=== PATIENT | male | born 1940 | race Caucasian/White ===

== ENCOUNTER 2016-10-28 19:14 | Inpatient (IN) ==
[2016-10-28] MEDS ORDERED: Pantoprazole 80 MG in 0.9 % Sodium Chloride 50 ML IVPB ONE (19:22)
[2016-10-28] MEDS ORDERED: 0.9 % Sodium Chloride 500 ML IVC ONE (19:23)
[2016-10-28 20:06] LABS: Basophils # 0.1 K/mcL (0.0-0.2); Basophils % 0.5 %; Eosinophils # 0.1 K/mcL (0.0-0.6); Eosinophils % 0.8 %; Hematocrit 37.4 % (37.5-50.1); Hemoglobin 12.3 g/dL (12.9-16.9); Immature Granulocytes % 2.1 % (0-4); Lymphocytes # 2.1 K/mcL (0.6-4.6); Lymphocytes % 13.9 %; Mean Corpuscular HGB Conc 32.9 g/dL (31.6-35.5); Mean Corpuscular Hemoglobin 29.4 pg (28.0-33.3); Mean Corpuscular Volume 89.3 fL (83.0-100.0); Mean Platelet Volume 9.8 fL (9.4-12.4); Monocytes # 0.4 K/mcL (0.0-1.3); Monocytes % 2.7 %; Neutrophils # 12.2 K/mcL (1.6-8.9); Platelet Count 247 K/mcL (140-400); Red Blood Count 4.19 M/mcL (4.19-5.50); Red Cell Distribution Width 14.8 % (11.5-14.5)
[2016-10-28 20:11] LABS: INR 1.1; Prothrombin Time 11.8 Seconds (9.4-12.1)
--- NOTE | 2016-10-28 20:11 | Emergency Department Note ---
Disposition Clinical Impression: GI bleed Qualifiers: GI bleed type/associated pathology: unspecified gastrointestinal hemorrhage type Qualified Code(s): K92.2 - Gastrointestinal hemorrhage, unspecified Disposition: Admitted As Inpatient Condition: Good GI Bleed HPI - General Chief complaint: ED GI Bleed Stated complaint: possible GI bleeding Time Seen by Provider: 10/28/16 19:21 Source: patient, family Mode of arrival: ambulatory Limitations: no limitations Nursing Notes Reviewed: Yes Vital Signs Reviewed: Yes - History of Present Illness HPI Narrative: Patient transferred from the [place] urgent care for evaluation of GI bleed. 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 at bedside able to confirm history with [place] urgent care. Patient has had increasing bloody as well as black bowel movements. Patient was seen by urgent care and found to have a dropping hemoglobin. Patient's hemoglobin on October 19 was 15.7. October 27 13.8. October 28 11.9. Patient denies any active chest pain back pain or abdominal pain. Stool guaiac study performed showing melanotic stool with intermixed bright red blood. Patient currently hemodynamically stable. Blood work as well as type and cross performed. Patient given Protonix bolus. 500 mL of normal saline bolus. states that it has been greater than 5 years at least since his previous colonoscopy. We will repeat labs to be able to trend his hemoglobin as well as coags and EKG for possible preprocedure clearance. - Related Data Home Medications Medication Instructions Recorded Confirmed Allopurinol [Zyloprim 100 MG] 100 mg PO DAILY 10/28/16 10/28/16 Atenolol [Tenormin] 50 mg PO DAILY 10/28/16 10/28/16 Cholecalciferol (D-3) [Vitamin D] 1,000 unit PO DAILY 10/28/16 10/28/16 Donepezil HCl [Aricept] 10 mg PO DAILY 10/28/16 10/28/16 Galantamine HBr [Razadyne] 4 mg PO DAILY 10/28/16 10/28/16 Memantine [Namenda] 10 mg PO DAILY 10/28/16 10/28/16 Potassium Gluconate 500 mg PO DAILY 10/28/16 10/28/16 Sulfamethoxazole/Trimeth DS 1 tab PO BID 10/28/16 10/28/16 [Bactrim DS] amLODIPine [Norvasc] 5 mg PO DAILY 10/28/16 10/28/16 Allergies Allergy/AdvReac Type Severity Reaction Status Date / Time No Known Allergies Allergy Verified 02/02/15 14:04 Review of Systems: CONSTITUTIONAL: No weight loss, fever, chills, weakness or fatigue. HEENT: Eyes: No visual changes. Ears, Nose, Throat: No hearing loss, difficulty talking or unable to swallow. SKIN: No rash or itching. CARDIOVASCULAR: No chest pain, chest pressure or chest discomfort. No palpitations or edema. RESPIRATORY: No shortness of breath, cough or sputum. GASTROINTESTINAL: Rectal bleeding GENITOURINARY: No burning on urination or hematuria. NEUROLOGICAL: No headache, dizziness, syncope, paralysis, ataxia, numbness or tingling in the extremities. No change in bowel or bladder control. MUSCULOSKELETAL: No muscle pain, back pain, joint pain or stiffness. Past Medical History - Past Medical History Medical history: Reports: hypertension Surgical history: Reports: no surgical history Psychiatric history: Reports: no psych history - Social History Smoking Status: Former smoker Smokeless Tobacco Status: No Alcohol use: Reports: none Drug use: Reports: none Physical Exam General appearance: NAD, conversant Eyes: anicteric sclerae, moist conjunctivae; PERRL HENT: Atraumatic; oropharynx clear with moist mucous membranes and no mucosal ulcerations Neck: Normal inspection; Trachea midline; FROM, supple Lungs: CTA, with normal respiratory effort and no intercostal retractions CV: RRR, no MRGs Abdomen: Soft, non-tender; no rebound or gaurding Stool guaiac positive for melanotic and intermixed bright red blood Extremities: No peripheral edema or extremity lymphadenopathy Skin: Normal temperature; no rash, ulcers or lesions Psych: Appropriate mood and affect Neuro: alert and oriented to person but not place or time. Course - Reevaluation(s) Reevaluation #1: Patient remains stable. Time: 20:36 - Consultations Consultation #1: Discussed with Dr. Carson, hospitalist. Patient accepted for admission. Time: 20:36 Vital Signs Temperature 98.3 F 10/28/16 19:25 Pulse Rate 72 10/28/16 19:25 Respiratory Rate 18 10/28/16 19:25 Blood Pressure 137/78 10/28/16 19:25 O2 Sat by Pulse Oximetry 98 10/28/16 19:25 Temperature 0 F L 10/28/16 20:50 Pulse Rate 72 10/28/16 20:50 Respiratory Rate 18 10/28/16 20:50 Blood Pressure 145/82 10/28/16 20:50 O2 Sat by Pulse Oximetry 99 10/28/16 20:50 Oxygen Delivery Oxygen Delivery Room Air GI Bleed - Medical Records Medical records reviewed: Yes I reviewed the patient's medical records. - Lab Data Lab results reviewed: Yes I reviewed the patient's lab results. Result diagrams: 10/28/16 19:35 10/28/16 19:35 Lab Results 10/28/16 10/28/16 10/28/16 Range/Units 19:35 19:35 19:35 WBC 15.3 H (4.3-11.1) K/mcL RBC 4.19 (4.19-5.50) M/mcL Hgb 12.3 L (12.9-16.9) g/dL Hct 37.4 L (37.5-50.1) % MCV 89.3 (83.0-100.0) fL MCH 29.4 (28.0-33.3) pg MCHC 32.9 (31.6-35.5) g/dL RDW 14.8 H (11.5-14.5) % Plt Count 247 (140-400) K/mcL MPV 9.8 (9.4-12.4) fL Immature Gran % 2.1 (0-4) % Seg Neutrophils % 80.0 % Lymphocytes % 13.9 % Monocytes % 2.7 % Eosinophils % 0.8 % Basophils % 0.5 % Neutrophils # 12.2 H (1.6-8.9) K/mcL Lymphocytes # 2.1 (0.6-4.6) K/mcL Monocytes # 0.4 (0.0-1.3) K/mcL Eosinophils # 0.1 (0.0-0.6) K/mcL Basophils # 0.1 (0.0-0.2) K/mcL PT 11.8 (9.4-12.1) Seconds INR 1.1 APTT 28.4 (26.0-36.0) Seconds Sodium 138 (136-145) mEq/L Potassium 4.6 H (3.5-4.5) mEq/L Chloride 109 (98-109) mEq/L Carbon Dioxide 21 (19-29) mEq/L BUN 49 H (8-26) mg/dL Creatinine 1.54 H (0.72-1.25) mg/dL Est GFR ( Amer) 53 L (> 60) Est GFR (Non-Af Amer) 44 L (> 60) BUN/Creatinine Ratio 32 H (6-26) Glucose 99 (70-99) mg/dL Calculated Osmolality 299 (280-300) Calcium 8.9 (8.6-10.8) mg/dL Blood Type Antibody Screen 10/28/16 Range/Units 19:35 WBC (4.3-11.1) K/mcL RBC (4.19-5.50) M/mcL Hgb (12.9-16.9) g/dL Hct (37.5-50.1) % MCV (83.0-100.0) fL MCH (28.0-33.3) pg MCHC (31.6-35.5) g/dL RDW (11.5-14.5) % Plt Count (140-400) K/mcL MPV (9.4-12.4) fL Immature Gran % (0-4) % Seg Neutrophils % % Lymphocytes % % Monocytes % % Eosinophils % % Basophils % % Neutrophils # (1.6-8.9) K/mcL Lymphocytes # (0.6-4.6) K/mcL Monocytes # (0.0-1.3) K/mcL Eosinophils # (0.0-0.6) K/mcL Basophils # (0.0-0.2) K/mcL PT (9.4-12.1) Seconds INR APTT (26.0-36.0) Seconds Sodium (136-145) mEq/L Potassium (3.5-4.5) mEq/L Chloride (98-109) mEq/L Carbon Dioxide (19-29) mEq/L BUN (8-26) mg/dL Creatinine (0.72-1.25) mg/dL Est GFR ( Amer) (> 60) Est GFR (Non-Af Amer) (> 60) BUN/Creatinine Ratio (6-26) Glucose (70-99) mg/dL Calculated Osmolality (280-300) Calcium (8.6-10.8) mg/dL Blood Type O POSITIVE Antibody Screen NEGATIVE - EKG Data EKG attestation: Yes I reviewed and interpreted this EKG. EKG results narrative: EKG shows sinus rhythm with ventricular rate of 65 bpm. ME interval 192. QRS 101. QTC 398. Patient has no significant ST elevations or depressions. EKG similar in appearance to 02/03/2009. Attestation Statement - Attestation Attestation: I, José Encarnacion MD, personally evaluated this patient and discussed their management with the resident physician. I reviewed the resident's note and agree with the documented findings, medical decision making, and plan of care. 76-year-old male transferred here from the [place] for evaluation of GI bleeding. Family reports that this morning he had a black bloody bowel movement. He denies abdominal pain. He was recently seen at the [place] and started on antibiotics for UTI. He had lab work yesterday and his hemoglobin had dropped 2 g from previous. On examination patient is a well-developed well-nourished elderly male in no acute distress. He is alert and cooperative and answers questions appropriately. There is no cyanosis or diaphoresis. Breath sounds are clear and equal bilaterally. Heart regular rate and rhythm. Abdomen is soft and nontender with normal bowel sounds. Labs reviewed. The hospitalist, Dr. Carson, was consulted and accepted admission of the patient.
[2016-10-28 20:14] LABS: Activated Partial Thrombo Time 28.4 Seconds (26.0-36.0)
[2016-10-28 20:18] LABS: Calcium 8.9 mg/dL (8.6-10.8); Potassium 4.6 mEq/L (3.5-4.5)
[2016-10-28] MEDS ORDERED: Ondansetron 4 MG/2 ML VIAL IVP PRN ×2 (20:34→22:17)
[2016-10-28] MEDS ORDERED: Naloxone 0.4 MG/ML INJ IVP PRN (20:34)
[2016-10-28] MEDS ORDERED: Acetaminophen 325 MG TABLET PO PRN (22:17)
--- NOTE | 2016-10-28 22:50 | Internal Med History&Physical ---
<Nishant Carson - Last Filed: 10/28/16 23:28> Date of Encounter: 10/28/16 Internal Medicine - H&P: HPI History of present illness: is a 76 year old male Internal Medicine - H&P: Meds Allopurinol [Zyloprim 100 MG] 100 mg PO DAILY 10/28/16 [History] Atenolol [Tenormin] 50 mg PO DAILY 10/28/16 [History] Cholecalciferol (D-3) [Vitamin D] 1,000 unit PO DAILY 10/28/16 [History] Donepezil HCl [Aricept] 10 mg PO DAILY 10/28/16 [History] Galantamine HBr [Razadyne] 4 mg PO DAILY 10/28/16 [History] Memantine [Namenda] 10 mg PO DAILY 10/28/16 [History] Potassium Gluconate 500 mg PO DAILY 10/28/16 [History] Sulfamethoxazole/Trimeth DS [Bactrim DS] 1 tab PO BID 10/28/16 [History] amLODIPine [Norvasc] 5 mg PO DAILY 10/28/16 [History] Allergies No Known Allergies Allergy (Verified 02/02/15 14:04) All Systems PM: A 10-system review of systems was performed and is negative for pertinent findings except as documented above in the HPI. - Constitutional Vitals: Temp Pulse Resp BP Pulse Ox 98.3 F 68 16 117/69 94 10/28/16 21:46 10/28/16 21:46 10/28/16 21:46 10/28/16 21:46 10/28/16 21:46 Internal Med - H&P Results - Labs CBC & Chem 7: 10/28/16 22:35 10/28/16 19:35 Labs: Short CBC 10/28/16 Range/Units 22:35 Hgb 10.4 L D (12.9-16.9) g/dL Hct 31.1 L (37.5-50.1) % - Attending Attestation I examined this patient and my medical decision-making was reviewed with Ms. Dean. I agree with the documented findings, disposition and treatment plan as described except to the extent set forth below. 76 has been sent from [place] due to black-colored stools over the past few days with blood noted today. Patient does have dementia and hence history was obtained from his . According to the , she noticed blood in the patient 's stools today. Currently, the patient reports feeling tired. His stated that the patient was short of breath over the past couple of days. He denies any chest pain, abdominal pain. History of nonsteroidal anti- inflammatory drug use. On exam, patient lying in bed and appears to be no acute distress. Clear breath sounds bilaterally. Abdomen soft, nontender and nondistended. Labs reviewed. EKG personally reviewed-sinus rhythm. No ST-T wave changes. Assessment/plan: 1. Acute blood loss anemia due to gastrointestinal bleed-patient to be admitted to inpatient status. High risk due to risk of further blood loss and risk of hemorrhagic shock. Expected to be in the hospital for at least 2 midnights. Expected discharge disposition is to home. Nothing by mouth. Case discussed with Dr. Brown who is gauge controller for endoscopy this weekend by Ms. Dean. Patient will be evaluated by him in the morning. PPI drip. Intravenous fluids. Trend hemoglobin and hematocrit. Type and crossmatch. No indication for transfusion currently. 2. GI blood loss-likely upper GI bleed related to possible gastritis versus duodenitis versus peptic ulcer disease. Related to nonsteroidal anti- inflammatory drug use. 3. Hypertension BUBBA Hogan <Sunni Dean - Last Filed: 10/29/16 00:22> Date of Encounter: 10/29/16 Time of Encounter: 22:47 Assessment and Plan (1) GI bleed Current visit: Yes Status: Acute Patient with reports of bloody as well as black stools. Fecal occult blood was positive. Hgb dropped from 15.7 on 10/19 to 11.9 today. Patient is not on any blood thinners, but has been taking naproxen. Hold NSAIDs. 80mg protonix given in ED. Protonix drip Check H/H Q6 hours NPO Consult to Dr. Brown, gauge controller for GI bleed, he will see patient tomorrow. Qualifiers: GI bleed type/associated pathology: unspecified gastrointestinal hemorrhage type Qualified Code(s): K92.2 - Gastrointestinal hemorrhage, unspecified (2) CKD (chronic kidney disease) Current visit: Yes Status: Acute Creatinine of 1.54 today, down from creatinine on 10/19 of 1.64. Family is unaware of any diagnosis of CKD, and we do not have previous lab values. It is unclear if this is chronic or more acute in nature. REcent diagnosis of UTI. Holding NSAIDs and other nephrotoxins. Hydrating with fluids, 0.9NS at 100mL/ hr. Check chemistry daily. Qualifiers: Chronic kidney disease stage: stage 3 (moderate) Qualified Code(s): N18.3 - Chronic kidney disease, stage 3 (moderate) (3) UTI (urinary tract infection) Current visit: Yes Status: Acute Patient diagnosed with UTI at [facility] yesterday and started on Bactrim BID. UA from today does not appear infected, but will continue Bactrim BID. Qualifiers: Urinary tract infection type: acute cystitis Hematuria presence: without hematuria Qualified Code(s): N30.00 - Acute cystitis without hematuria (4) Dementia Current visit: Yes Status: Acute Patient with dementia, poor historian, but oriented on assessment. Continue home doses of Aricept, Namenda and Razadyne. 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 Recommend follow-up with ultrasound in 6 months. (6) DVT prophylaxis Current visit: Yes Status: Acute Sequential compression devices. Pharmacologic prophylaxis is contraindicated in patient with suspected GI bleed. Internal Medicine - H&P: HPI Chief complaint: bloody stool Admitted From: Emergency Dept Plans for Post Hospital Care: Home History of present illness: is a 76 year old male with hypertension, hyperlipidemia, gout, Alzheimer's dementia, was sent from the [facility] urgent care with reports of black and bloody stools. Patient reports that this morning his stool was bloody, reports she is unsure how long this has been going on, stool was also seen to be black. Patient reports dyspnea on exertion, nausea. Patient denies any lightheadedness, chest pain, palpitations, vomiting, abdominal pain. Evaluation at the [facility] revealed positive fecal occult blood, and drop in hemoglobin from 15.7 on October 19 to 11.9 today. Patient is not on any anticoagulation. Other evaluation revealed elevated creatinine of 1.54, down from previous value of 1.64 on October 19. Patient is unaware of any diagnosis of chronic kidney disease. White blood cell count was elevated at 15.3, patient had been diagnosed with UTI yesterday and started on Bactrim twice a day. CT of the abdomen and pelvis done at the [facility] showed no evidence of urinary lithiasis colonic diverticulosis but no evidence of diverticulitis. On exam, patient alert and oriented, in no acute distress. Heart had regular rate and rhythm, lungs clear to auscultation bilaterally. Abdomen soft, nontender, positive bowel sounds. No peripheral edema. Past Med Surg Social Fam HX - Past Medical History Medical history: dementia, hyperlipidemia, hypertension, thyroid disease, other Psychiatric history: no psych history - Past Surgical History Surgical History: herniorrhaphy, orthopedic, other (bilateral rotator cuff) - Social History Smoking Status: Former smoker Smokeless Tobacco Status: No Alcohol use: none Drug use: none - Family History Father Adopted: [place]: JOHANNE Family Member Ethnicity: Non- Living Status: Age at : 52 Cause of : LUNG CANCER Hx Family Cardiac Disorders: Yes Hx Family Respiratory Disorders: Yes Hx Family Cancer: Yes Hx Family GI Disorders: No Hx Family Genitourinary Disorders: No Hx Family Endocrine Disorder: No Hx Family Musculoskeletal Disorders: No Hx Family Neuromuscular Disorders: No Hx Family Neurologic Disorders: No Hx Family HEENT Disorders: No Hx Family Autoimmune Disorders: No Hx Family Reproductive Disorders: No Hx Family Psychosocial Disorders: No Hx Family Medical Disorders: No Mother Living Status: Age at : 79 Hx Family Cardiac Disorders: Yes All Systems PM: A 10-system review of systems was performed and is negative for pertinent findings except as documented above in the HPI. - Constitutional Constitutional: no chills, no fever(s), no night sweats - EENT Eyes: no change in vision, no discharge, no pain, no photophobia Ears: no ear discharge, no ear pain, no tinnitus Nose, mouth and throat: no dysphagia, no nasal discharge, no neck pain, no sore throat - Cardiovascular Cardiovascular ROS IM: dyspnea on exertion, no chest pain, no diaphoresis, no dyspnea, no lightheadedness, no palpitations, no syncope - Respiratory Respiratory: dyspnea on exertion, no cough, no dyspnea, no wheezing, no excessive phlegm production - Gastrointestinal Gastrointestinal: hematochezia, melena, nausea, no abdominal pain, no diarrhea, no hematemesis, no vomiting - Musculoskeletal Musculoskeletal ROS IM: no numbness, no tingling - Integumentary Integumentary IM: no rash, no unusual bruising - Neurological Neurological ROS: no confusion, no convulsions, no focal weakness, no numbness, no tingling, no tremor(s) - Hematologic/Lymphatic Hematologic/Lymphatic: no easy bruising - Constitutional Vitals: Temp Pulse Resp BP Pulse Ox 98.3 F 68 16 117/69 94 10/28/16 21:46 10/28/16 21:46 10/28/16 21:46 10/28/16 21:46 10/28/16 21:46 General appearance: Present: A&O X 3, pleasant, no acute distress - Head Head exam: Present: atraumatic, normocephalic - Eye Eye exam: Present: PERRL, conjuntiva pink, sclera anicteric Pupils: Present: PERRL - Neck Neck exam general surgery: Present: supple, trachea midline. Absent: lymphadenopathy - Respiratory Respiratory exam: Present: CTAB. Absent: accessory muscle use, rales, rhonchi, wheezes - Cardiovascular Cardiovascular exam: Present: RRR, +S1, +S2. Absent: diastolic murmur, gallop, rubs, systolic murmur - GI/Abdominal GI/Abdominal exam: Present: normal bowel sounds, soft, no peritoneal signs. Absent: distended, tenderness - Extremities Exam Extremities exam: Present: warm, radial pulses palpable and symetrical. Absent : calf tenderness, cyanotic, pedal edema - Neurological Exam Neurological exam: Present: CN II-XII intact, oriented X3, no focal deficits. Absent: facial droop, speech deficit - Skin Skin exam: Present: dry, intact Internal Med - H&P Results - Labs CBC & Chem 7: 10/28/16 22:35 10/28/16 19:35 Labs: All Lab Results (24 Hours) 10/28/16 10/28/16 10/28/16 Range/Units 19:35 19:35 19:35 WBC 15.3 H (4.3-11.1) K/mcL RBC 4.19 (4.19-5.50) M/mcL Hgb 12.3 L (12.9-16.9) g/dL Hct 37.4 L (37.5-50.1) % MCV 89.3 (83.0-100.0) fL MCH 29.4 (28.0-33.3) pg MCHC 32.9 (31.6-35.5) g/dL RDW 14.8 H (11.5-14.5) % Plt Count 247 (140-400) K/mcL MPV 9.8 (9.4-12.4) fL Immature Gran % 2.1 (0-4) % Seg Neutrophils % 80.0 % Lymphocytes % 13.9 % Monocytes % 2.7 % Eosinophils % 0.8 % Basophils % 0.5 % Neutrophils # 12.2 H (1.6-8.9) K/mcL Lymphocytes # 2.1 (0.6-4.6) K/mcL Monocytes # 0.4 (0.0-1.3) K/mcL Eosinophils # 0.1 (0.0-0.6) K/mcL Basophils # 0.1 (0.0-0.2) K/mcL PT 11.8 (9.4-12.1) Seconds INR 1.1 APTT 28.4 (26.0-36.0) Seconds Sodium 138 (136-145) mEq/L Potassium 4.6 H (3.5-4.5) mEq/L Chloride 109 (98-109) mEq/L Carbon Dioxide 21 (19-29) mEq/L BUN 49 H (8-26) mg/dL Creatinine 1.54 H (0.72-1.25) mg/dL Est GFR ( Amer) 53 L (> 60) Est GFR (Non-Af Amer) 44 L (> 60) BUN/Creatinine Ratio 32 H (6-26) Glucose 99 (70-99) mg/dL Calculated Osmolality 299 (280-300) Calcium 8.9 (8.6-10.8) mg/dL Blood Type Antibody Screen 10/28/16 Range/Units 19:35 WBC (4.3-11.1) K/mcL RBC (4.19-5.50) M/mcL Hgb (12.9-16.9) g/dL Hct (37.5-50.1) % MCV (83.0-100.0) fL MCH (28.0-33.3) pg MCHC (31.6-35.5) g/dL RDW (11.5-14.5) % Plt Count (140-400) K/mcL MPV (9.4-12.4) fL Immature Gran % (0-4) % Seg Neutrophils % % Lymphocytes % % Monocytes % % Eosinophils % % Basophils % % Neutrophils # (1.6-8.9) K/mcL Lymphocytes # (0.6-4.6) K/mcL Monocytes # (0.0-1.3) K/mcL Eosinophils # (0.0-0.6) K/mcL Basophils # (0.0-0.2) K/mcL PT (9.4-12.1) Seconds INR APTT (26.0-36.0) Seconds Sodium (136-145) mEq/L Potassium (3.5-4.5) mEq/L Chloride (98-109) mEq/L Carbon Dioxide (19-29) mEq/L BUN (8-26) mg/dL Creatinine (0.72-1.25) mg/dL Est GFR ( Amer) (> 60) Est GFR (Non-Af Amer) (> 60) BUN/Creatinine Ratio (6-26) Glucose (70-99) mg/dL Calculated Osmolality (280-300) Calcium (8.6-10.8) mg/dL Blood Type O POSITIVE Antibody Screen NEGATIVE - VTE Documentation of Mechanical Device: Intermittent pneumatic compression device
[2016-10-28 22:52] LABS: Hematocrit 31.1 % (37.5-50.1)
[2016-10-28 22:53] LABS: Hemoglobin 10.4 g/dL (12.9-16.9)
[2016-10-28] MEDS: Pantoprazole 40 MG in 0.9 % Sodium Chloride Mini Bag 100 ML IVC SCH (23:29)
[2016-10-28] MEDS: 0.9 % Sodium Chloride 1,000 ML IVC SCH (23:30)
[2016-10-29] MEDS: Pantoprazole 40 MG in 0.9 % Sodium Chloride Mini Bag 100 ML IVC SCH ×5 (04:10→23:45)
[2016-10-29 04:29] LABS: Basophils # 0.1 K/mcL (0.0-0.2); Basophils % 0.6 %; Eosinophils # 0.2 K/mcL (0.0-0.6); Eosinophils % 1.4 %; Hematocrit 29.3 % (37.5-50.1); Hemoglobin 9.4 g/dL (12.9-16.9); Immature Granulocytes % 2.4 % (0-4); Lymphocytes # 2.4 K/mcL (0.6-4.6); Lymphocytes % 17.2 %; Mean Corpuscular HGB Conc 32.1 g/dL (31.6-35.5); Mean Corpuscular Hemoglobin 29.4 pg (28.0-33.3); Mean Corpuscular Volume 91.6 fL (83.0-100.0); Mean Platelet Volume 9.8 fL (9.4-12.4); Monocytes # 0.5 K/mcL (0.0-1.3); Monocytes % 3.6 %; Neutrophils # 10.4 K/mcL (1.6-8.9); Platelet Count 210 K/mcL (140-400); Red Cell Distribution Width 14.7 % (11.5-14.5); Segmented Neutrophils % 74.8 %
[2016-10-29 04:42] LABS: Albumin 2.8 g/dL (3.5-5.0); Bilirubin,Total 0.6 mg/dL (0.2-1.2); Calcium 8.2 mg/dL (8.6-10.8); Globulin 2.8 g/dL (2.4-3.5); Potassium 4.7 mEq/L (3.5-4.5); Total Protein 5.6 g/dL (6.0-8.3)
[2016-10-29] MEDS ORDERED: Pantoprazole 40 MG VIAL IVP SCH (06:00)
--- NOTE | 2016-10-29 07:37 | Internal Medicine Consult Note ---
Date of Encounter: 10/29/16 Time of Encounter: 07:35 - Assessment and Plan (1) GI bleed Current Visit: Yes Status: Acute Assessment and plan: It does appear he has had a GI bleed, most likely upper source, less likely would be a right colonic source. Differential to include AVMs, ulcer disease, occult malignancy is thought to be less likely. I have discussed the need of endoscopy, he is verbally consented to an EGD, I believe even with his mild dementia he is able to consent and understanding risks of procedure. This gentleman does drive and does fine in the community. Qualifiers: GI bleed type/associated pathology: unspecified gastrointestinal hemorrhage type Qualified Code(s): K92.2 - Gastrointestinal hemorrhage, unspecified (2) CKD (chronic kidney disease) Current Visit: Yes Status: Chronic Qualifiers: Chronic kidney disease stage: stage 3 (moderate) Qualified Code(s): N18.3 - Chronic kidney disease, stage 3 (moderate) (3) Dementia Current Visit: Yes Status: Chronic Qualifiers: Dementia type: Alzheimer's disease Alzheimer's disease onset: unspecified onset Dementia behavioral disturbance: without behavioral disturbance Qualified Code(s): G30.9 - Alzheimer's disease, unspecified; F02.80 - Dementia in other diseases classified elsewhere without behavioral disturbance (4) Essential hypertension Current Visit: Yes Status: Chronic (5) Acute blood loss anemia Current Visit: Yes Status: Acute Internal Medicine - CN: HPI - Data of Consult Patient: new to practice Requesting Physician: Jackie Blunt CNP - Consult Narrative History of present illness: is a 76 year old male presented to the hospital yesterday, through the [facility], with what appears to be GI bleeding. He admits for the past 3 days he's felt somewhat weak. I think his stools were somewhat dark over the past 3 or 4 days, presented to the [facility]. They're concerned about GI bleeding, and then subsequently brought into the ER at [place]. he does have some mild baseline dementia, and per his sounds like his stools were somewhat dark and with times may be some old blood. I have tried to contact her this morning. He's had no abdominal pain, no nausea no vomiting. Does admit to losing a little bit of weight. I did talk to him about the need for EGD and possible colonoscopy, he is at least verbally committed to the upper is not sure he wants to colon done. Due to his age. Past Med Surg Social Fam HX - Past Medical History Medical history: dementia, hyperlipidemia, hypertension, thyroid disease, other Psychiatric history: no psych history - Past Surgical History Surgical History: herniorrhaphy, orthopedic, other (bilateral rotator cuff) - Social History Smoking Status: Former smoker Smokeless Tobacco Status: No Alcohol use: none Drug use: none - Family History Father Adopted: [place]: JOHANNE Family Member Ethnicity: Non- Living Status: Age at : 52 Cause of : LUNG CANCER Hx Family Cardiac Disorders: Yes Hx Family Respiratory Disorders: Yes Hx Family Cancer: Yes Hx Family GI Disorders: No Hx Family Genitourinary Disorders: No Hx Family Endocrine Disorder: No Hx Family Musculoskeletal Disorders: No Hx Family Neuromuscular Disorders: No Hx Family Neurologic Disorders: No Hx Family HEENT Disorders: No Hx Family Autoimmune Disorders: No Hx Family Reproductive Disorders: No Hx Family Psychosocial Disorders: No Hx Family Medical Disorders: No Mother Living Status: Age at : 79 Hx Family Cardiac Disorders: Yes - Constitutional Constitutional: weight loss - Cardiovascular Cardiovascular ROS IM: dyspnea, no chest pain, no lightheadedness, no palpitations, no syncope - Respiratory Respiratory: no cough, no dyspnea - Gastrointestinal Gastrointestinal: change in bowel habits, melena, no abdominal pain, no coffee ground emesis, no diarrhea, no nausea, no vomiting - Neurological Neurological ROS: memory loss, no focal weakness, no frequent falls, no lack of coordination Internal Medicine - CN: Meds Allopurinol [Zyloprim 100 MG] 100 mg PO DAILY 10/28/16 [History] Atenolol [Tenormin] 50 mg PO DAILY 10/28/16 [History] Cholecalciferol (D-3) [Vitamin D] 1,000 unit PO DAILY 10/28/16 [History] Donepezil HCl [Aricept] 10 mg PO DAILY 10/28/16 [History] Galantamine HBr [Razadyne] 4 mg PO DAILY 10/28/16 [History] Memantine [Namenda] 10 mg PO DAILY 10/28/16 [History] Potassium Gluconate 500 mg PO DAILY 10/28/16 [History] Sulfamethoxazole/Trimeth DS [Bactrim DS] 1 tab PO BID 10/28/16 [History] amLODIPine [Norvasc] 5 mg PO DAILY 10/28/16 [History] Allergies No Known Allergies Allergy (Verified 02/02/15 14:04) Internal Medicine - CN: Exam - Constitutional Vitals: Temp Pulse Resp BP Pulse Ox 98.2 F 92 14 104/67 97 10/29/16 03:10 10/29/16 03:10 10/29/16 03:10 10/29/16 03:10 10/29/16 03:10 General appearance IM: Present: A&O X 3, pleasant, answers questions appropriately. Absent: mild distress - Head Head exam: Present: atraumatic - Respiratory Respiratory exam: Present: CTAB - Cardiovascular Cardiovascular exam IM: Present: RRR - GI/Abdominal GI/Abdominal exam IM: Present: normal bowel sounds, soft. Absent: guarding, pulsatile mass, rigid, splenomegaly - Rectal Rectal exam: Present: deferred Internal Medicine - CN: Reslt - Labs CBC & Chem 7: 10/29/16 04:05 10/29/16 04:05 Labs: Short CBC 10/28/16 10/29/16 Range/Units 22:35 04:05 WBC 13.9 H (4.3-11.1) K/mcL Hgb 10.4 L D 9.4 L (12.9-16.9) g/dL Hct 31.1 L 29.3 L (37.5-50.1) % Plt Count 210 (140-400) K/mcL Neutrophils # 10.4 H (1.6-8.9) K/mcL BMP 10/29/16 04:05 Sodium 138 Potassium 4.7 H Chloride 112 H Carbon Dioxide 20 BUN 59 H Creatinine 1.59 H Glucose 84 Calcium 8.2 L Liver Function 10/29/16 Range/Units 04:05 Total Bilirubin 0.6 (0.2-1.2) mg/dL AST 15 (5-34) Units/L ALT 15 (0-55) Units/L Alkaline Phosphatase 38 (38-126) Units/L Albumin 2.8 L (3.5-5.0) g/dL - ABG Interpretation ABG results: PT/INR, D-dimer PT 11.8 Seconds (9.4-12.1) 10/28/16 19:35 Consult Discharge Plan - Plan [facility]: [facility] [Primary Care Provider] -
[2016-10-29] MEDS ORDERED: SODIUM CHLORIDE/NAHCO3/KCL/PEG 4,000 ML SOLN.RECON PO ONE (08:40)
--- NOTE | 2016-10-29 08:43 | Event Note ---
Date of Encounter: 10/29/16 Time of Encounter: 08:42 The , NEGRO has shown up.. we have decided to prep for Colonoscopy in the AM, if EGD is negative... both consents signed.
[2016-10-29] MEDS ORDERED: amLODIPine 5 MG TABLET PO SCH (09:00)
[2016-10-29] MEDS: Sulfamethoxazole/Trimeth DS 1 EACH TABLET PO SCH ×2 (09:08→20:30)
[2016-10-29] MEDS: 0.9 % Sodium Chloride 1,000 ML IVC SCH ×3 (09:09→20:10)
[2016-10-29 10:43] LABS: Hematocrit 26.9 % (37.5-50.1); Hemoglobin 8.8 g/dL (12.9-16.9)
[2016-10-29] MEDS ORDERED: 0.9 % Sodium Chloride 250 ML IVC PRN (12:17)
--- NOTE | 2016-10-29 12:37 | Internal Med Progress Note ---
Date of Encounter: 10/29/16 Time of Encounter: 11:50 - Assessment and plan (1) Acute blood loss anemia Current Visit: Yes Status: Acute Assessment and plan: Secondary to UGIB patient has had multiple episodes of black tarry stools since morning with drop in H&H. Patient is pale appearing and hypotensive. Will transfer patient to the ICU due to risk of further blood loss and risk of hemorrhagic shock will transfuse 2units PRBC at this time closely monitor H&H. H&H q6h continue PPI isreal Gomez spoke with Dr. Brown and updated him on patient's current status. Dr. Brown is to take the patient for EGD today will hold off on colonoscopy bowel prep at this time will continue to closely monitor (2) GI bleed Current Visit: Yes Status: Acute Assessment and plan: as listed above Qualifiers: GI bleed type/associated pathology: unspecified gastrointestinal hemorrhage type Qualified Code(s): K92.2 - Gastrointestinal hemorrhage, unspecified (3) UTI (urinary tract infection) Current Visit: Yes Status: Acute Assessment and plan: Patient currently undergoing treatment for UTI from the [facility] will continue Bactrim at this time Qualifiers: Urinary tract infection type: acute cystitis Hematuria presence: without hematuria Qualified Code(s): N30.00 - Acute cystitis without hematuria (4) Dementia Current Visit: Yes Status: Chronic Qualifiers: Dementia type: Alzheimer's disease Alzheimer's disease onset: unspecified onset Dementia behavioral disturbance: without behavioral disturbance Qualified Code(s): G30.9 - Alzheimer's disease, unspecified; F02.80 - Dementia in other diseases classified elsewhere without behavioral disturbance (5) DVT prophylaxis Current Visit: Yes Status: Acute Assessment and plan: SCD (6) Essential hypertension Current Visit: Yes Status: Chronic Assessment and plan: Pt received home dose of antihypertensive this morning Currently hypotensive secondary to acute blood loss anemia will continue IVF and maintain MAP>65 hold antihypertensive meds at this time patient to receive 2unit PRBC at this time - Subjective Interval history: Patient is a 76y/o male who is admitted for UGIB. Patient seen and examined at bedside. Pt reported of having multiple dark tarry bowel movements since morning. Dr. Brown on board and to scope the patient in am (EGD/Colonoscopy). Pt is pale appearing with borderline BP. Will closely monitor H&H and transfuse as needed. Pt will be transferred to [facility] for higher level of care. - Constitutional Vitals: Temp Pulse Resp BP Pulse Ox 96.5 F L 67 14 79/51 98 10/29/16 11:45 10/29/16 11:45 10/29/16 11:45 10/29/16 11:45 10/29/16 11:45 General appearance: Present: A&O X 3 (fatigued, pale ), pleasant, answers questions appropriately - Head Head exam: Present: atraumatic, normocephalic - Eye Eye exam: Present: normal appearance, conjuntiva pink, sclera anicteric - Respiratory Respiratory exam: Present: CTAB. Absent: accessory muscle use, rales, rhonchi, wheezes - Cardiovascular Cardiovascular exam: Present: RRR, +S1, +S2 - GI/Abdominal GI/Abdominal exam: Present: normal bowel sounds, soft, no peritoneal signs. Absent: distended, tenderness - Extremities Exam Extremities exam: Present: warm, radial pulses palpable and symetrical. Absent : pedal edema - Neurological Exam Neurological exam: Present: alert, oriented X3 Internal Medicine: Result - Labs CBC & Chem 7: 10/29/16 10:20 10/29/16 04:05 Labs: Short CBC 10/28/16 10/29/16 10/29/16 Range/Units 22:35 04:05 10:20 WBC 13.9 H (4.3-11.1) K/mcL Hgb 10.4 L D 9.4 L 8.8 L (12.9-16.9) g/dL Hct 31.1 L 29.3 L 26.9 L (37.5-50.1) % Plt Count 210 (140-400) K/mcL Neutrophils # 10.4 H (1.6-8.9) K/mcL BMP 10/29/16 04:05 Sodium 138 Potassium 4.7 H Chloride 112 H Carbon Dioxide 20 BUN 59 H Creatinine 1.59 H Glucose 84 Calcium 8.2 L Liver Function 10/29/16 Range/Units 04:05 Total Bilirubin 0.6 (0.2-1.2) mg/dL AST 15 (5-34) Units/L ALT 15 (0-55) Units/L Alkaline Phosphatase 38 (38-126) Units/L Albumin 2.8 L (3.5-5.0) g/dL - ABG Interpretation ABG results: PT/INR, D-dimer PT 11.8 Seconds (9.4-12.1) 10/28/16 19:35 - VTE Documentation of Mechanical Device: Intermittent pneumatic compression device Consult Discharge Plan - Plan [facility]errals: [facility] [Primary Care Provider] -
[2016-10-29 13:37] LABS: Hematocrit 25.5 % (37.5-50.1); Hemoglobin 8.3 g/dL (12.9-16.9)
[2016-10-29] MEDS ORDERED: *HR* FentaNYL (PF) 100 MCG/2 ML VIAL ONE (13:59)
[2016-10-29] MEDS ORDERED: Simethicone 40 MG/0.6 ML MLS IR ONE (14:04)
[2016-10-29] MEDS ORDERED: Tetracaine/Benzocaine/Butamben 200MG/SPRAY (100SPY/BOT) MM ONE (14:04)
--- NOTE | 2016-10-29 14:05 | Pre-Sedation Evaluation ---
Pre-sedation evaluation - Pre-sedation checklist Date of procedure: 10/29/16 Procedure: EGD Recent Vitals: Last Vital Signs Temp 96.5 F L 10/29/16 11:45 Pulse 87 10/29/16 13:07 Resp 14 10/29/16 11:45 BP 84/52 10/29/16 13:07 Pulse Ox 98 10/29/16 11:45 H&P (including ROS) documented in medical record: No Previous reaction to sedatives/anesthetics: Unknown Dietary Status: No solid food in preceding 4 hrs and no liquid in preceding 2 hrs Airway Assessment: Patient can open mouth completely, TMJ function normal Dentition: No loose teeth or bridges Possible difficult airway: No ASA Classification *see protocol: CLASS III-Severe systemic disease
[2016-10-29] MEDS: *HR* Midazolam HCl 2 MG/2 ML VIAL IVP PRN ×2 (14:18→14:29)
[2016-10-29] MEDS: *HR* FentaNYL (PF) 100 MCG/2 ML VIAL IVP PRN ×2 (14:18→14:29)
--- NOTE | 2016-10-29 15:01 | Event Note ---
Date of Encounter: 10/29/16 Time of Encounter: 14:58 EGD Findings 1. Stomach with many pill induced erosions, shallow ulcerations; no signs of bleeding..Biopsies taken for H. Pylori. 2. Duodenal bulb with hyperemia and edema A. One small, but deep ulcer noted; used coagulation to cauterize three visible vessels B. One sloan red spot, no bleeding, placed endoclip. Risk of re-bleeding is 50 %.. needs 72 hrs. of IV PPI therapy. and family aware.. also admits to chronic Naprosyn use.
[2016-10-29] MEDS ORDERED: 0.9 % Sodium Chloride 250 ML ONE (15:22)
[2016-10-29] MEDS: Sucralfate 1 GM TABLET PO SCH ×2 (16:28→20:11)
[2016-10-29 22:38] LABS: Hematocrit 28.6 % (37.5-50.1); Hemoglobin 9.4 g/dL (12.9-16.9)
[2016-10-30] MEDS: Pantoprazole 40 MG in 0.9 % Sodium Chloride Mini Bag 100 ML IVC SCH ×4 (01:41→18:59)
[2016-10-30 06:14] LABS: Basophils # 0.1 K/mcL (0.0-0.2); Basophils % 0.5 %; Eosinophils # 0.1 K/mcL (0.0-0.6); Eosinophils % 1.2 %; Hematocrit 26.9 % (37.5-50.1); Immature Granulocytes % 1.8 % (0-4); Lymphocytes # 2.2 K/mcL (0.6-4.6); Lymphocytes % 19.8 %; Mean Corpuscular HGB Conc 33.5 g/dL (31.6-35.5); Mean Corpuscular Hemoglobin 29.6 pg (28.0-33.3); Mean Corpuscular Volume 88.5 fL (83.0-100.0); Mean Platelet Volume 10.1 fL (9.4-12.4); Monocytes # 0.4 K/mcL (0.0-1.3); Monocytes % 3.6 %; Neutrophils # 8.3 K/mcL (1.6-8.9); Platelet Count 169 K/mcL (140-400); Red Blood Count 3.04 M/mcL (4.19-5.50); Red Cell Distribution Width 15.5 % (11.5-14.5); Segmented Neutrophils % 73.1 %
[2016-10-30 06:27] LABS: BUN/Creatinine Ratio 36 (6-26); Blood Urea Nitrogen 48 mg/dL (8-26); Calcium 7.8 mg/dL (8.6-10.8); Carbon Dioxide 16 mEq/L (19-29); Chloride 114 mEq/L (98-109); Glucose 83 mg/dL (70-99); Osmolality,Calculated 296 (280-300); Phosphorous 2.7 mg/dL (2.3-4.7); Potassium 4.3 mEq/L (3.5-4.5); Sodium 137 mEq/L (136-145); eGFR For African Americans > 60 (> 60); eGFR For Non-African Americans 52 (> 60)
[2016-10-30] MEDS: 0.9 % Sodium Chloride 1,000 ML IVC SCH ×2 (06:27→11:47)
--- NOTE | 2016-10-30 08:45 | Internal Med Progress Note ---
Date of Encounter: 10/30/16 Time of Encounter: 08:43 - Assessment and plan (1) Duodenal ulcer hemorrhagic Current Visit: Yes Status: Acute Assessment and plan: Will watch Hgb and vitals through the day. (2) GI bleed Current Visit: Yes Status: Acute Assessment and plan: He has significant Duodenal inflammation/ulceration.. On PPI and Carafate. Qualifiers: GI bleed type/associated pathology: unspecified gastrointestinal hemorrhage type Qualified Code(s): K92.2 - Gastrointestinal hemorrhage, unspecified (3) CKD (chronic kidney disease) Current Visit: Yes Status: Chronic Qualifiers: Chronic kidney disease stage: stage 3 (moderate) Qualified Code(s): N18.3 - Chronic kidney disease, stage 3 (moderate) (4) Dementia Current Visit: Yes Status: Chronic Qualifiers: Dementia type: Alzheimer's disease Alzheimer's disease onset: unspecified onset Dementia behavioral disturbance: without behavioral disturbance Qualified Code(s): G30.9 - Alzheimer's disease, unspecified; F02.80 - Dementia in other diseases classified elsewhere without behavioral disturbance (5) Essential hypertension Current Visit: Yes Status: Chronic (6) Acute blood loss anemia Current Visit: Yes Status: Acute Assessment and plan: Some drop in HGB after receiving 2 Units of blood - Time Spent With Patient 25 - 35 minutes - Subjective Interval history: He is stable in the ICU.. still having some maroon to melanotic stools.. less frequent and not bright red. No abd. pain. Vitals are stable. I told him what we found yesterday and the treatment.. that the risk of bleeding remains elevated. - Constitutional Vitals: Temp Pulse Resp BP Pulse Ox 98.5 F 68 16 111/78 99 10/30/16 07:41 10/30/16 05:00 10/30/16 05:00 10/30/16 05:00 10/30/16 05:00 General appearance: Present: A&O X 3 (fatigued, pale ), pleasant, answers questions appropriately - Respiratory Respiratory exam: Present: CTAB - Cardiovascular Cardiovascular exam: Present: RRR - GI/Abdominal GI/Abdominal exam: Present: normal bowel sounds, soft, no peritoneal signs. Absent: rigid Internal Medicine: Result - Labs CBC & Chem 7: 10/30/16 05:41 10/30/16 05:41 Labs: Short CBC 10/29/16 10/29/16 10/29/16 Range/Units 10:20 13:26 22:27 WBC (4.3-11.1) K/mcL Hgb 8.8 L 8.3 L 9.4 L (12.9-16.9) g/dL Hct 26.9 L 25.5 L 28.6 L (37.5-50.1) % Plt Count (140-400) K/mcL Neutrophils # (1.6-8.9) K/mcL 10/30/16 Range/Units 05:41 WBC 11.3 H (4.3-11.1) K/mcL Hgb 9.0 L (12.9-16.9) g/dL Hct 26.9 L (37.5-50.1) % Plt Count 169 (140-400) K/mcL Neutrophils # 8.3 (1.6-8.9) K/mcL BMP 10/30/16 05:41 Sodium 137 Potassium 4.3 Chloride 114 H Carbon Dioxide 16 L BUN 48 H D Creatinine 1.33 H Glucose 83 Calcium 7.8 L - ABG Interpretation ABG results: PT/INR, D-dimer PT 11.8 Seconds (9.4-12.1) 10/28/16 19:35 - VTE Documentation of Mechanical Device: Intermittent pneumatic compression device Consult Discharge Plan - Plan [facility]errals: [facility] [Primary Care Provider] -
--- NOTE | 2016-10-30 09:13 | Internal Med Progress Note ---
Date of Encounter: 10/30/16 Time of Encounter: 08:40 - Assessment and plan (1) Acute blood loss anemia Current Visit: Yes Status: Acute Assessment and plan: Secondary to UGIB s/p EGD high risk of rebleed will continue to monitor H&H q6h, will transfuse as needed s/p 2 units PRBC transfusion (10/29/16) continue PPI drip for [address] Brown appreciated will continue ICU care due to the risk of further blood loss and risk of hemorrhagic shock patient may need a repeat EGD if continues to have drop in H&H and worsening bleeds (2) GI bleed Current Visit: Yes Status: Acute Assessment and plan: EGD reported Duodenal inflammation/ulceration will continue PPI and Carafate clear liquid diet Qualifiers: GI bleed type/associated pathology: unspecified gastrointestinal hemorrhage type Qualified Code(s): K92.2 - Gastrointestinal hemorrhage, unspecified (3) UTI (urinary tract infection) Current Visit: Yes Status: Acute Assessment and plan: Patient currently undergoing treatment for UTI from the [facility] will continue Bactrim at this time Qualifiers: Urinary tract infection type: acute cystitis Hematuria presence: without hematuria Qualified Code(s): N30.00 - Acute cystitis without hematuria (4) Dementia Current Visit: Yes Status: Chronic Qualifiers: Dementia type: Alzheimer's disease Alzheimer's disease onset: unspecified onset Dementia behavioral disturbance: without behavioral disturbance Qualified Code(s): G30.9 - Alzheimer's disease, unspecified; F02.80 - Dementia in other diseases classified elsewhere without behavioral disturbance (5) DVT prophylaxis Current Visit: Yes Status: Acute Assessment and plan: SCD (6) Essential hypertension Current Visit: Yes Status: Chronic Assessment and plan: BP within acceptable range will continue to closely monitor will hold antihypertensives for SBP<120 (7) Metabolic acidosis Current Visit: Yes Status: Acute Assessment and plan: NAGMA secondary to GI losses noted to have bicarb deficit of 6amps will start Sodium Bicarb infusion (150meq bicarb in 0.45%NS @ 100cc/hr) d/c NS will continue to monitor - Subjective Interval history: Patient is a 76y/o male who is admitted for UGIB. Patient seen and examined at bedside. Resting in bed and reports of feeling weak but better compared to previous day. S/P EGD which showed multiple nonbleeding ulcers and duodenal bulb with hyperemia and edema. Patient underwent multiple biopsies. He continues to have black tarry stools with BRPR. He received 2units PRBC yesterday and noted to have gradual drop in H&H. Currently hemodynamically stable. - Constitutional Vitals: Temp Pulse Resp BP Pulse Ox 98.5 F 68 16 111/78 99 10/30/16 07:41 10/30/16 05:00 10/30/16 05:00 10/30/16 05:00 10/30/16 05:00 General appearance: Present: A&O X 3 (fatigued, pale ), pleasant, answers questions appropriately - Head Head exam: Present: atraumatic, normocephalic - Eye Eye exam: Present: conjuntiva pink, sclera anicteric - Respiratory Respiratory exam: Absent: respiratory distress, wheezes - Cardiovascular Cardiovascular exam: Present: RRR, +S1, +S2 - GI/Abdominal GI/Abdominal exam: Present: normal bowel sounds, soft, no peritoneal signs. Absent: distended, tenderness - Extremities Exam Extremities exam: Present: warm, radial pulses palpable and symetrical. Absent : calf tenderness - Neurological Exam Neurological exam: Present: alert, oriented X3 - Psychiatric Psychiatric exam: Present: normal affect, normal mood Internal Medicine: Result - Labs CBC & Chem 7: 10/30/16 05:41 10/30/16 05:41 Labs: Short CBC 10/29/16 10/29/16 10/29/16 Range/Units 10:20 13:26 22:27 WBC (4.3-11.1) K/mcL Hgb 8.8 L 8.3 L 9.4 L (12.9-16.9) g/dL Hct 26.9 L 25.5 L 28.6 L (37.5-50.1) % Plt Count (140-400) K/mcL Neutrophils # (1.6-8.9) K/mcL 10/30/16 Range/Units 05:41 WBC 11.3 H (4.3-11.1) K/mcL Hgb 9.0 L (12.9-16.9) g/dL Hct 26.9 L (37.5-50.1) % Plt Count 169 (140-400) K/mcL Neutrophils # 8.3 (1.6-8.9) K/mcL BMP 10/30/16 05:41 Sodium 137 Potassium 4.3 Chloride 114 H Carbon Dioxide 16 L BUN 48 H D Creatinine 1.33 H Glucose 83 Calcium 7.8 L - ABG Interpretation ABG results: PT/INR, D-dimer PT 11.8 Seconds (9.4-12.1) 10/28/16 19:35 - VTE Documentation of Mechanical Device: Intermittent pneumatic compression device Consult Discharge Plan - Plan Referrals: [facility] [Primary Care Provider] -
--- NOTE | 2016-10-30 09:32 | Electrocardiograph Report ---
[address] [address] Test Date: 2016-10-28 Pat Name: Deep Smith Department: 103 Room: [facility] Gender: M Pesticide Applicator: BERNARD : 1940 Requested By: Nghia Tubbs Order Number: [id number] Reading MD: Taylor Preciado Measurements Intervals Joes Rate: 65 P: -24 NC: 192 QRS: 3 QRSD: 101 T: 29 QT: 386 QTc: 398 Interpretive Statements SINUS RHYTHM Electronically Signed On 10-30-2016 9:30:50 EDT by Taylor Preciado
[2016-10-30] MEDS: Sodium Bicarbonate 150 MEQ in 0.45 % Sodium Chloride 1,000 ML IVC SCH ×3 (10:00→20:09)
[2016-10-30] MEDS: Sucralfate 1 GM TABLET PO SCH ×4 (11:32→20:08)
[2016-10-30] MEDS: Sulfamethoxazole/Trimeth DS 1 EACH TABLET PO SCH ×2 (11:39→20:08)
[2016-10-30 12:38] LABS: Hematocrit 27.7 % (37.5-50.1)
[2016-10-30] MEDS: *HR* Midazolam HCl 5 MG/5 ML VIAL IVP ONE (19:57)
[2016-10-30 20:06] LABS: Hematocrit 26.6 % (37.5-50.1); Hemoglobin 8.9 g/dL (12.9-16.9)
[2016-10-31 00:37] LABS: Hematocrit 24.6 % (37.5-50.1); Hemoglobin 8.3 g/dL (12.9-16.9)
[2016-10-31] MEDS: Pantoprazole 40 MG in 0.9 % Sodium Chloride Mini Bag 100 ML IVC SCH ×5 (00:40→21:45)
[2016-10-31] MEDS: *HR* Midazolam HCl 5 MG/5 ML VIAL IVP ONE (02:41)
[2016-10-31] MEDS: 0.9 % Sodium Chloride 1,000 ML IVC SCH (05:25)
[2016-10-31 06:34] LABS: Basophils % 0.7 %; Eosinophils # 0.1 K/mcL (0.0-0.6); Eosinophils % 2.3 %; Hematocrit 23.5 % (37.5-50.1); Hemoglobin 7.7 g/dL (12.9-16.9); Immature Granulocytes % 2.2 % (0-4); Lymphocytes # 1.5 K/mcL (0.6-4.6); Lymphocytes % 27.2 %; Mean Corpuscular HGB Conc 32.8 g/dL (31.6-35.5); Mean Corpuscular Hemoglobin 29.6 pg (28.0-33.3); Mean Corpuscular Volume 90.4 fL (83.0-100.0); Mean Platelet Volume 9.8 fL (9.4-12.4); Monocytes # 0.3 K/mcL (0.0-1.3); Monocytes % 4.9 %; Neutrophils # 3.5 K/mcL (1.6-8.9); Nucleated Red Blood Cells 0.5 /100 WBC (0); Platelet Count 144 K/mcL (140-400); Red Cell Distribution Width 15.9 % (11.5-14.5); Segmented Neutrophils % 62.7 %
[2016-10-31 06:45] LABS: BUN/Creatinine Ratio 20 (6-26); Calcium 7.7 mg/dL (8.6-10.8); Carbon Dioxide 25 mEq/L (19-29); Chloride 110 mEq/L (98-109); Glucose 77 mg/dL (70-99); Magnesium 1.9 mg/dL (1.6-2.6); Osmolality,Calculated 298 (280-300); Phosphorous 2.9 mg/dL (2.3-4.7); Potassium 3.6 mEq/L (3.5-4.5); Sodium 142 mEq/L (136-145); eGFR For African Americans > 60 (> 60); eGFR For Non-African Americans 50 (> 60)
[2016-10-31 06:58] LABS: Blood Urea Nitrogen 28 mg/dL (8-26)
--- NOTE | 2016-10-31 07:03 | Internal Med Progress Note ---
Date of Encounter: 10/31/16 Time of Encounter: 07:01 - Assessment and plan (1) Duodenal ulcer hemorrhagic Current Visit: Yes Status: Acute Assessment and plan: Even though the Hgb has dropped, he has not been asymp. or tachycardic. Plan will be to repeat HGB around noon.. if nursing sees increase uptake in bloody or melanotic stools, or if cont. sig. drop in HGB, then will pland second look EGD later today. I would keep him in the ICU today, he needs another full 24 hr. of IV PPI. Will add protein supplement and oral Iron. (2) GI bleed Current Visit: Yes Status: Acute Qualifiers: GI bleed type/associated pathology: unspecified gastrointestinal hemorrhage type Qualified Code(s): K92.2 - Gastrointestinal hemorrhage, unspecified (3) CKD (chronic kidney disease) Current Visit: Yes Status: Chronic Qualifiers: Chronic kidney disease stage: stage 3 (moderate) Qualified Code(s): N18.3 - Chronic kidney disease, stage 3 (moderate) (4) Dementia Current Visit: Yes Status: Chronic Qualifiers: Dementia type: Alzheimer's disease Alzheimer's disease onset: unspecified onset Dementia behavioral disturbance: without behavioral disturbance Qualified Code(s): G30.9 - Alzheimer's disease, unspecified; F02.80 - Dementia in other diseases classified elsewhere without behavioral disturbance (5) Essential hypertension Current Visit: Yes Status: Chronic (6) Acute blood loss anemia Current Visit: Yes Status: Acute - Subjective Interval history: He remains well.. he does have some expected confusion about orientation and why he's in the Hospital. Cooperative, not restless. Nursing notes small tarry stools.. This is not unexpected. His vitals remain stable. Noted drop in HGB to 7.7. No abd. pain. - Constitutional Vitals: Temp Pulse Resp BP Pulse Ox 98.4 F 82 12 105/75 96 10/31/16 00:21 10/31/16 06:00 10/31/16 06:00 10/31/16 06:00 10/31/16 06:00 General appearance: Present: A&O X 1, pleasant, answers questions appropriately - Neck Neck exam general surgery: Present: supple - Respiratory Respiratory exam: Present: CTAB - Cardiovascular Cardiovascular exam: Present: RRR. Absent: JVD - GI/Abdominal GI/Abdominal exam: Present: soft, no peritoneal signs Internal Medicine: Result - Labs CBC & Chem 7: 10/31/16 06:07 10/31/16 06:07 Labs: Short CBC 10/30/16 10/30/16 10/31/16 Range/Units 12:26 18:55 00:30 WBC (4.3-11.1) K/mcL Hgb 9.0 L 8.9 L 8.3 L (12.9-16.9) g/dL Hct 27.7 L 26.6 L 24.6 L (37.5-50.1) % Plt Count (140-400) K/mcL Neutrophils # (1.6-8.9) K/mcL 10/31/16 Range/Units 06:07 WBC 5.6 D (4.3-11.1) K/mcL Hgb 7.7 L (12.9-16.9) g/dL Hct 23.5 L (37.5-50.1) % Plt Count 144 (140-400) K/mcL Neutrophils # 3.5 (1.6-8.9) K/mcL BMP 10/31/16 06:07 Sodium 142 Potassium 3.6 Chloride 110 H Carbon Dioxide 25 BUN 28 H D Creatinine 1.38 H Glucose 77 Calcium 7.7 L - ABG Interpretation ABG results: PT/INR, D-dimer PT 11.8 Seconds (9.4-12.1) 10/28/16 19:35 - VTE Documentation of Mechanical Device: Intermittent pneumatic compression device Consult Discharge Plan - Plan [facility]errals: [facility] [Primary Care Provider] -
[2016-10-31] MEDS: Sulfamethoxazole/Trimeth DS 1 EACH TABLET PO SCH ×2 (08:19→20:17)
[2016-10-31] MEDS: Sucralfate 1 GM TABLET PO SCH ×4 (08:19→20:17)
--- NOTE | 2016-10-31 09:08 | Internal Med Progress Note ---
Date of Encounter: 10/31/16 Time of Encounter: 08:40 - Assessment and plan (1) Acute blood loss anemia Current Visit: Yes Status: Acute Assessment and plan: Secondary to UGIB s/p EGD high risk of rebleed will continue to monitor H&H q6h, will transfuse as needed If H&H drops below 7 or patient becomes hemodynamically unstable, will transfuse 2units PRBC s/p 2 units PRBC transfusion (10/29/16) continue PPI drip for 72 hours after EGD consultation with Dr. Kevin singh, may go in for a repeat EGD later today. will continue ICU care due to the risk of further blood loss and risk of hemorrhagic shock (2) GI bleed Current Visit: Yes Status: Acute Assessment and plan: EGD reported Duodenal inflammation/ulceration will continue PPI and Carafate NPO at this time for repeat EGD later today. Will resume diet after EGD Qualifiers: GI bleed type/associated pathology: unspecified gastrointestinal hemorrhage type Qualified Code(s): K92.2 - Gastrointestinal hemorrhage, unspecified (3) UTI (urinary tract infection) Current Visit: Yes Status: Acute Assessment and plan: Patient currently undergoing treatment for UTI from the [facility] will continue Bactrim at this time Qualifiers: Urinary tract infection type: acute cystitis Hematuria presence: without hematuria Qualified Code(s): N30.00 - Acute cystitis without hematuria (4) Dementia Current Visit: Yes Status: Chronic Qualifiers: Dementia type: Alzheimer's disease Alzheimer's disease onset: unspecified onset Dementia behavioral disturbance: without behavioral disturbance Qualified Code(s): G30.9 - Alzheimer's disease, unspecified; F02.80 - Dementia in other diseases classified elsewhere without behavioral disturbance (5) DVT prophylaxis Current Visit: Yes Status: Acute Assessment and plan: SCD (6) Essential hypertension Current Visit: Yes Status: Chronic Assessment and plan: BP within acceptable range will continue to closely monitor will hold antihypertensives for SBP<120 (7) Metabolic acidosis Current Visit: Yes Status: Resolved Assessment and plan: Resolved d/c bicarb drip continue NS @ 50cc/hr - Subjective Interval history: Patient is a 76y/o male who is admitted for UGIB. Pt seen and examined at bedside. Mildly confused but AAO x 3. Reports of weakness but denies any pain at this time. Continues to have black tarry stools with drop in h&h. will continue to closely monitor H&H and transfuse if become hemodynamically unstable or H&H drops below 7. - Constitutional Vitals: Temp Pulse Resp BP Pulse Ox 98.4 F 89 16 142/73 95 10/31/16 07:29 10/31/16 08:00 10/31/16 08:00 10/31/16 08:00 10/31/16 08:00 General appearance: Present: A&O X 3, pleasant, no acute distress, answers questions appropriately - Head Head exam: Present: atraumatic, normocephalic - Eye Eye exam: Present: conjuntiva pink, sclera anicteric - Respiratory Respiratory exam: Absent: respiratory distress, wheezes - Cardiovascular Cardiovascular exam: Present: RRR, +S1, +S2 - GI/Abdominal GI/Abdominal exam: Present: normal bowel sounds, soft. Absent: tenderness - Extremities Exam Extremities exam: Present: warm, radial pulses palpable and symetrical. Absent : calf tenderness - Neurological Exam Neurological exam: Present: alert, oriented X3 - Psychiatric Psychiatric exam: Present: normal affect, normal mood Internal Medicine: Result - Labs CBC & Chem 7: 10/31/16 06:07 10/31/16 06:07 Labs: Short CBC 10/30/16 10/30/16 10/31/16 Range/Units 12:26 18:55 00:30 WBC (4.3-11.1) K/mcL Hgb 9.0 L 8.9 L 8.3 L (12.9-16.9) g/dL Hct 27.7 L 26.6 L 24.6 L (37.5-50.1) % Plt Count (140-400) K/mcL Neutrophils # (1.6-8.9) K/mcL 10/31/16 Range/Units 06:07 WBC 5.6 D (4.3-11.1) K/mcL Hgb 7.7 L (12.9-16.9) g/dL Hct 23.5 L (37.5-50.1) % Plt Count 144 (140-400) K/mcL Neutrophils # 3.5 (1.6-8.9) K/mcL BMP 10/31/16 06:07 Sodium 142 Potassium 3.6 Chloride 110 H Carbon Dioxide 25 BUN 28 H D Creatinine 1.38 H Glucose 77 Calcium 7.7 L - ABG Interpretation ABG results: PT/INR, D-dimer PT 11.8 Seconds (9.4-12.1) 10/28/16 19:35 - VTE Documentation of Mechanical Device: Intermittent pneumatic compression device Consult Discharge Plan - Plan [facility]: [facility] [Primary Care Provider[facility] -
[2016-10-31] MEDS ORDERED: 0.9 % Sodium Chloride 250 ML ONE (10:38)
[2016-10-31] MEDS: Sodium Bicarbonate 150 MEQ in 0.45 % Sodium Chloride 1,000 ML IVC SCH (12:29)
[2016-10-31 12:35] LABS: Hematocrit 25.5 % (37.5-50.1); Hemoglobin 8.5 g/dL (12.9-16.9)
[2016-10-31] MEDS ORDERED: *HR* FentaNYL (PF) 100 MCG/2 ML VIAL ONE (14:21)
[2016-10-31] MEDS ORDERED: *HR* Midazolam HCl 5 MG/5 ML VIAL IVP ONE (14:21)
[2016-10-31] MEDS ORDERED: Tetracaine/Benzocaine/Butamben 200MG/SPRAY (100SPY/BOT) MM ONE (14:31)
[2016-10-31] MEDS ORDERED: *HR* FentaNYL (PF) 100 MCG/2 ML VIAL IVP PRN (14:31)
[2016-10-31] MEDS ORDERED: Simethicone 40 MG/0.6 ML MLS IR ONE (14:31)
[2016-10-31] MEDS ORDERED: *HR* Midazolam HCl 2 MG/2 ML VIAL IVP PRN (14:31)
--- NOTE | 2016-10-31 14:32 | Pre-Sedation Evaluation ---
Pre-sedation evaluation - Pre-sedation checklist Date of procedure: 10/31/16 Procedure: EGD Recent Vitals: Last Vital Signs Temp 98.1 F 10/31/16 13:05 Pulse 82 10/31/16 13:05 Resp 23 10/31/16 13:05 BP 120/62 10/31/16 13:05 Pulse Ox 93 10/31/16 13:05 H&P (including ROS) documented in medical record: Yes Previous reaction to sedatives/anesthetics: No Dietary Status: NPO 6 hours prior to procedure Dentition: No loose teeth or bridges Possible difficult airway: No ASA Classification *see protocol: CLASS III-Severe systemic disease
[2016-10-31] MEDS ORDERED: 0.9 % Sodium Chloride 1,000 ML IVC SCH (14:45)
--- NOTE | 2016-10-31 14:55 | Event Note ---
Date of Encounter: 10/31/16 Time of Encounter: 14:51 Was called about noon by Nurse, when he got up, became tachycardic and lightheaded.. has had no bowel movements after this AM's visit. Due to change in vitals and slight trend down in HGB, planned re-look EGD to assess the Duodenum. EGD Findings1. No sign. change in stomach erosions..no bleeding. Duodenum. Much less erythema.. Ulcer bed healing nicely. Endoclip in place. No blood seen. Tolerated well. Would keep in ICU today, agree with transfusion. huang HGB in the AM.. if doing well tomorrow can advance diet, move out of ICU. is aware of plan.
--- NOTE | 2016-10-31 15:45 | Electrocardiograph Report ---
[place] [id number] Test Date: 2016-10-31 Pat Name: Deep Smith Department: [id number] Room: 01 Gender: M [employer] Lead: : [id number] Requested By: Simona Callaway Order Number: [id number] Reading MD: Biju Trinidad MD Measurements Intervals [place] Rate: 81 P: -51 OK: 158 QRS: -3 QRSD: 109 T: 3 QT: 405 QTc: 442 Interpretive Statements SINUS RHYTHM WITH OCCASIONAL SUPRAVENTRICULAR PREMATURE COMPLEXES INFERIOR MYOCARDIAL INFARCTION, PROBABLY OLD Electronically Signed On 10-31-2016 15:44:00 EDT by Biju Trinidad MD
[2016-11-01] MEDS: Pantoprazole 40 MG in 0.9 % Sodium Chloride Mini Bag 100 ML IVC SCH ×5 (02:47→21:27)
[2016-11-01 05:53] LABS: Basophils # 0.1 K/mcL (0.0-0.2); Basophils % 0.8 %; Eosinophils # 0.1 K/mcL (0.0-0.6); Eosinophils % 2.2 %; Hematocrit 26.9 % (37.5-50.1); Hemoglobin 9.1 g/dL (12.9-16.9); Immature Granulocytes % 0.8 % (0-4); Lymphocytes # 1.2 K/mcL (0.6-4.6); Lymphocytes % 19.3 %; Mean Corpuscular HGB Conc 33.8 g/dL (31.6-35.5); Mean Corpuscular Hemoglobin 30.7 pg (28.0-33.3); Mean Corpuscular Volume 90.9 fL (83.0-100.0); Mean Platelet Volume 10.2 fL (9.4-12.4); Monocytes # 0.4 K/mcL (0.0-1.3); Monocytes % 6.2 %; Neutrophils # 4.5 K/mcL (1.6-8.9); Platelet Count 141 K/mcL (140-400); Red Blood Count 2.96 M/mcL (4.19-5.50); Red Cell Distribution Width 16.6 % (11.5-14.5); Segmented Neutrophils % 70.7 %
[2016-11-01 06:08] LABS: Phosphorous 3.1 mg/dL (2.3-4.7); Potassium 3.4 mEq/L (3.5-4.5)
[2016-11-01] MEDS: Sucralfate 1 GM TABLET PO SCH ×4 (07:52→21:27)
[2016-11-01] MEDS: Sulfamethoxazole/Trimeth DS 1 EACH TABLET PO SCH ×2 (07:53→21:27)
--- NOTE | 2016-11-01 11:26 | Internal Med Progress Note ---
Date of Encounter: 11/01/16 Time of Encounter: 11:25 - Assessment and plan (1) GI bleed Current Visit: Yes Status: Acute Assessment and plan: Continue with IV Protonix. Repeat EGD planned this afternoon. Continue with Carafate. Qualifiers: GI bleed type/associated pathology: duodenal ulcer Qualified Code(s): K26.4 - Chronic or unspecified duodenal ulcer with hemorrhage (2) CKD (chronic kidney disease) Current Visit: Yes Status: Chronic Assessment and plan: Creatinine is at baseline. Monitor kidney function. Qualifiers: Chronic kidney disease stage: stage 3 (moderate) Qualified Code(s): N18.3 - Chronic kidney disease, stage 3 (moderate) (3) UTI (urinary tract infection) Current Visit: Yes Status: Acute Assessment and plan: Patient currently undergoing treatment for UTI from the [facility] will continue Bactrim at this time Qualifiers: Urinary tract infection type: acute cystitis Hematuria presence: without hematuria Qualified Code(s): N30.00 - Acute cystitis without hematuria (4) Dementia Current Visit: Yes Status: Chronic Qualifiers: Dementia type: Alzheimer's disease Alzheimer's disease onset: unspecified onset Dementia behavioral disturbance: without behavioral disturbance Qualified Code(s): G30.9 - Alzheimer's disease, unspecified; F02.80 - Dementia in other diseases classified elsewhere without behavioral disturbance (5) DVT prophylaxis Current Visit: Yes Status: Acute Assessment and plan: SCD (6) Acute blood loss anemia Current Visit: Yes Status: Acute Assessment and plan: Secondary to UGIB s/p EGD high risk of rebleed will continue to monitor H&H q6h, will transfuse as needed If H&H drops below 7 or patient becomes hemodynamically unstable, will transfuse 2units PRBC s/p 2 units PRBC transfusion (10/29/16) continue PPI drip for 72 hours after EGD consultation with Dr. Kevin singh, may go in for a repeat EGD later today. will continue ICU care due to the risk of further blood loss and risk of hemorrhagic shock (7) Duodenal ulcer hemorrhagic Current Visit: Yes Status: Acute Assessment and plan: 11/01/2016: Had EGD with hemostasis performed. Plan as for repeat EGD today. Continue with IV PPI. Full liquid diet. Monitor clinically. Monitor hemoglobin and hematocrit daily. Consider adding Carafate. If he remains hemodynamically stable will transfer him to floor. before meals 10/31/2016: Even though the Hgb has dropped, he has not been asymp. or tachycardic. Plan will be to repeat HGB around noon.. if nursing sees increase uptake in bloody or melanotic stools, or if cont. sig. drop in HGB, then will pland second look EGD later today. I would keep him in the ICU today, he needs another full 24 hr. of IV PPI. Will add protein supplement and oral Iron. - Subjective Interval history: 11/01/2016: Patient presented to the hospital with nausea and vomiting, he reports that his nausea has resolved, has had no vomiting over the last 24 hours , denies associated abdominal pain. He has tolerated a diet. Denies dysuria hematuria and fever. - Constitutional Vitals: Temp Pulse Resp BP Pulse Ox 97.9 F 70 16 133/67 95 11/01/16 08:00 11/01/16 08:00 11/01/16 08:00 11/01/16 08:00 11/01/16 08:00 General appearance: Present: A&O X 3, pleasant, no acute distress, answers questions appropriately - Respiratory Respiratory exam: Present: CTAB. Absent: accessory muscle use, rales, rhonchi, wheezes - Cardiovascular Cardiovascular exam: Present: RRR, +S1, +S2. Absent: diastolic murmur, gallop, rubs, systolic murmur - GI/Abdominal GI/Abdominal exam: Present: normal bowel sounds, soft, no peritoneal signs. Absent: distended, tenderness - Extremities Exam Extremities exam: Present: warm, radial pulses palpable and symetrical. Absent : calf tenderness, cyanotic, pedal edema - Neurological Exam Neurological exam: Present: CN II-XII intact, oriented X3, no focal deficits. Absent: pronater drift, facial droop, speech deficit - Skin Skin exam: Present: dry, intact Internal Medicine: Result - Labs CBC & Chem 7: 11/01/16 05:14 11/01/16 05:14 Labs: Short CBC 10/31/16 11/01/16 Range/Units 12:22 05:14 WBC 6.4 (4.3-11.1) K/mcL Hgb 8.5 L 9.1 L (12.9-16.9) g/dL Hct 25.5 L 26.9 L (37.5-50.1) % Plt Count 141 (140-400) K/mcL Neutrophils # 4.5 (1.6-8.9) K/mcL BMP 11/01/16 05:14 Sodium 144 Potassium 3.4 L Chloride 112 H Carbon Dioxide 24 BUN 16 D Creatinine 1.42 H Glucose 78 Calcium 8.0 L - ABG Interpretation ABG results: PT/INR, D-dimer PT 11.8 Seconds (9.4-12.1) 10/28/16 19:35 - VTE Documentation of Mechanical Device: Intermittent pneumatic compression device Consult Discharge Plan - Plan [facility]errals: [facility] [Primary Care Provider] -
[2016-11-02 03:38] LABS: Basophils # 0.1 K/mcL (0.0-0.2); Basophils % 0.9 %; Eosinophils # 0.2 K/mcL (0.0-0.6); Eosinophils % 2.8 %; Hematocrit 26.7 % (37.5-50.1); Hemoglobin 8.7 g/dL (12.9-16.9); Immature Granulocytes % 0.6 % (0-4); Lymphocytes # 1.2 K/mcL (0.6-4.6); Lymphocytes % 22.2 %; Mean Corpuscular HGB Conc 32.6 g/dL (31.6-35.5); Mean Corpuscular Volume 92.1 fL (83.0-100.0); Mean Platelet Volume 9.9 fL (9.4-12.4); Monocytes # 0.4 K/mcL (0.0-1.3); Monocytes % 7.3 %; Neutrophils # 3.6 K/mcL (1.6-8.9); Platelet Count 142 K/mcL (140-400); Red Cell Distribution Width 16.7 % (11.5-14.5); Segmented Neutrophils % 66.2 %
[2016-11-02] MEDS: Pantoprazole 40 MG in 0.9 % Sodium Chloride Mini Bag 100 ML IVC SCH ×2 (03:45→09:06)
[2016-11-02 03:51] LABS: BUN/Creatinine Ratio 7 (6-26); Blood Urea Nitrogen 9 mg/dL (8-26); Calcium 8.3 mg/dL (8.6-10.8); Carbon Dioxide 27 mEq/L (19-29); Chloride 109 mEq/L (98-109); Glucose 85 mg/dL (70-99); Osmolality,Calculated 286 (280-300); Potassium 3.7 mEq/L (3.5-4.5); Sodium 139 mEq/L (136-145); eGFR For African Americans > 60 (> 60); eGFR For Non-African Americans 53 (> 60)
[2016-11-02] MEDS: Sucralfate 1 GM TABLET PO SCH ×4 (09:07→21:20)
[2016-11-02] MEDS: Sulfamethoxazole/Trimeth DS 1 EACH TABLET PO SCH ×2 (09:07→21:20)
[2016-11-02] MEDS: Pantoprazole 40 MG VIAL IVP SCH (17:29)
--- NOTE | 2016-11-02 18:51 | Internal Med Progress Note ---
Date of Encounter: 11/02/16 Time of Encounter: 10:00 - Assessment and plan (1) GI bleed Current Visit: Yes Status: Acute Assessment and plan: Was switched to Protonix IV twice a day. Stop IV drip. Repeat EGD planned done yesterday. Continue with Carafate. Qualifiers: GI bleed type/associated pathology: duodenal ulcer Qualified Code(s): K26.4 - Chronic or unspecified duodenal ulcer with hemorrhage (2) CKD (chronic kidney disease) Current Visit: Yes Status: Chronic Assessment and plan: Creatinine is at baseline. Monitor kidney function. Qualifiers: Chronic kidney disease stage: stage 3 (moderate) Qualified Code(s): N18.3 - Chronic kidney disease, stage 3 (moderate) (3) UTI (urinary tract infection) Current Visit: Yes Status: Acute Assessment and plan: Patient currently undergoing treatment for [facility]TI from the [facility] will continue Bactrim at this time Qualifiers: Urinary tract infection type: acute cystitis Hematuria presence: without hematuria Qualified Code(s): N30.00 - Acute cystitis without hematuria (4) Dementia Current Visit: Yes Status: Chronic Assessment and plan: Delirium precautions. Avoid psychotropic medication. Frequent reorientation. Qualifiers: Dementia type: Alzheimer's disease Alzheimer's disease onset: unspecified onset Dementia behavioral disturbance: without behavioral disturbance Qualified Code(s): G30.9 - Alzheimer's disease, unspecified; F02.80 - Dementia in other diseases classified elsewhere without behavioral disturbance (5) DVT prophylaxis Current Visit: Yes Status: Acute Assessment and plan: SCD (6) Acute blood loss anemia Current Visit: Yes Status: Acute Assessment and plan: 11/02/2016: Monitor hemoglobin and hematocrit. Transfuse as necessary to maintain hemoglobin above 7 or if hemodynamically unstable and active bleed. 11/01/2016: Secondary to UGIB s/p EGD Moderate risk of rebleed will continue to monitor H&H , will transfuse as needed If H&H drops below 7 or patient becomes hemodynamically unstable, will transfuse 2units PRBC s/p 2 units PRBC transfusion (10/29/16) continue PPI drip for 72 hours after EGD consultation with Dr. Kevin singh, may go in for a repeat EGD later today. will continue ICU care due to the risk of further blood loss and risk of hemorrhagic shock (7) Duodenal ulcer hemorrhagic Current Visit: Yes Status: Acute Assessment and plan: 11/01/2016: Had EGD with hemostasis performed. Plan as for repeat EGD today. Continue with IV PPI. Full liquid diet. Monitor clinically. Monitor hemoglobin and hematocrit daily. Consider adding Carafate. If he remains hemodynamically stable will transfer him to floor. before meals 10/31/2016: Even though the Hgb has dropped, he has not been asymp. or tachycardic. Plan will be to repeat HGB around noon.. if nursing sees increase uptake in bloody or melanotic stools, or if cont. sig. drop in HGB, then will pland second look EGD later today. I would keep him in the ICU today, he needs another full 24 hr. of IV PPI. Will add protein supplement and oral Iron. - Subjective Interval history: 11/02/2016: Patient reports no nausea or vomiting, no rectal bleeding over the last 24 hours. 11/01/2016: Patient presented to the hospital with nausea and vomiting, he reports that his nausea has resolved, has had no vomiting over the last 24 hours , denies associated abdominal pain. He has tolerated a diet. Denies dysuria hematuria and fever. - Constitutional Vitals: Temp Pulse Resp BP Pulse Ox 98.7 F 84 16 134/76 96 11/02/16 14:38 11/02/16 14:38 11/02/16 14:38 11/02/16 14:38 11/02/16 14:38 General appearance: Present: A&O X 3, pleasant, no acute distress, answers questions appropriately - Respiratory Respiratory exam: Present: CTAB. Absent: accessory muscle use, rales, rhonchi, wheezes - Cardiovascular Cardiovascular exam: Present: RRR, +S1, +S2. Absent: diastolic murmur, gallop, rubs, systolic murmur - GI/Abdominal GI/Abdominal exam: Present: normal bowel sounds, soft, no peritoneal signs. Absent: distended, tenderness - Neurological Exam Neurological exam: Present: CN II-XII intact, oriented X3, no focal deficits. Absent: pronater drift, facial droop, speech deficit - Skin Skin exam: Present: dry, intact Internal Medicine: Result - Labs CBC & Chem 7: 11/02/16 03:14 11/02/16 03:14 Labs: Short CBC 11/02/16 Range/Units 03:14 WBC 5.5 (4.3-11.1) K/mcL Hgb 8.7 L (12.9-16.9) g/dL Hct 26.7 L (37.5-50.1) % Plt Count 142 (140-400) K/mcL Neutrophils # 3.6 (1.6-8.9) K/mcL BMP 11/02/16 03:14 Sodium 139 Potassium 3.7 Chloride 109 Carbon Dioxide 27 BUN 9 Creatinine 1.30 H Glucose 85 Calcium 8.3 L - ABG Interpretation ABG results: PT/INR, D-dimer PT 11.8 Seconds (9.4-12.1) 10/28/16 19:35 - VTE Documentation of Mechanical Device: Intermittent pneumatic compression device Consult Discharge Plan - Plan [facility]errals: [facility] [Primary Care Provider] -
[2016-11-03] MEDS: Pantoprazole 40 MG VIAL IVP SCH (04:58)
[2016-11-03 05:14] LABS: Basophils % 0.7 %; Eosinophils # 0.2 K/mcL (0.0-0.6); Eosinophils % 2.8 %; Hemoglobin 8.8 g/dL (12.9-16.9); Immature Granulocytes % 0.7 % (0-4); Lymphocytes # 1.1 K/mcL (0.6-4.6); Lymphocytes % 20.3 %; Mean Corpuscular HGB Conc 32.6 g/dL (31.6-35.5); Mean Corpuscular Hemoglobin 30.1 pg (28.0-33.3); Mean Corpuscular Volume 92.5 fL (83.0-100.0); Mean Platelet Volume 10.1 fL (9.4-12.4); Monocytes # 0.4 K/mcL (0.0-1.3); Monocytes % 7.6 %; Neutrophils # 3.6 K/mcL (1.6-8.9); Platelet Count 149 K/mcL (140-400); Red Blood Count 2.92 M/mcL (4.19-5.50); Red Cell Distribution Width 16.7 % (11.5-14.5); Segmented Neutrophils % 67.9 %
[2016-11-03 05:27] LABS: BUN/Creatinine Ratio 5 (6-26); Blood Urea Nitrogen 7 mg/dL (8-26); Calcium 8.3 mg/dL (8.6-10.8); Carbon Dioxide 27 mEq/L (19-29); Chloride 109 mEq/L (98-109); Glucose 87 mg/dL (70-99); Osmolality,Calculated 289 (280-300); Potassium 3.6 mEq/L (3.5-4.5); Sodium 141 mEq/L (136-145); eGFR For African Americans > 60 (> 60); eGFR For Non-African Americans 53 (> 60)
[2016-11-03] MEDS: Sulfamethoxazole/Trimeth DS 1 EACH TABLET PO SCH (08:18)
[2016-11-03] MEDS: Sucralfate 1 GM TABLET PO SCH (08:18)
[2016-11-03 10:50] VITALS: BP 147/82
--- NOTE | 2016-11-03 14:26 | Discharge Summary ---
Date of Encounter: 11/03/16 Time of Encounter: 14:19 - Discharge Diagnosis (1) GI bleed Priority: Secondary Status: Acute Qualifiers: GI bleed type/associated pathology: duodenal ulcer Qualified Code(s): K26.4 - Chronic or unspecified duodenal ulcer with hemorrhage (2) CKD (chronic kidney disease) Priority: Secondary Status: Chronic Qualifiers: Chronic kidney disease stage: stage 3 (moderate) Qualified Code(s): N18.3 - Chronic kidney disease, stage 3 (moderate) (3) UTI (urinary tract infection) Priority: Secondary Status: Acute Qualifiers: Urinary tract infection type: acute cystitis Hematuria presence: without hematuria Qualified Code(s): N30.00 - Acute cystitis without hematuria (4) Dementia Priority: Secondary Status: Chronic Qualifiers: Dementia type: Alzheimer's disease Alzheimer's disease onset: unspecified onset Dementia behavioral disturbance: without behavioral disturbance Qualified Code(s): G30.9 - Alzheimer's disease, unspecified; F02.80 - Dementia in other diseases classified elsewhere without behavioral disturbance (5) DVT prophylaxis Priority: Secondary Status: Acute (6) Acute blood loss anemia Priority: Secondary Status: Acute (7) Duodenal ulcer hemorrhagic Priority: Primary Status: Acute - Discharge Medications Prescriptions: Ferrous Sulfate 325 mg PO BIDWM #60 tablet Pantoprazole Sodium [Protonix] 40 mg PO BID #60 tablet. Sucralfate [Carafate] 1 gm PO QID #120 oral.susp Home Medications: Allopurinol [Zyloprim 100 MG] 100 mg PO DAILY 10/28/16 [History] Atenolol [Tenormin] 50 mg PO DAILY 10/28/16 [History] Cholecalciferol (D-3) [Vitamin D] 1,000 unit PO DAILY 10/28/16 [History] Donepezil HCl [Aricept] 10 mg PO DAILY 10/28/16 [History] Galantamine HBr [Razadyne] 4 mg PO DAILY 10/28/16 [History] Memantine [Namenda] 10 mg PO DAILY 10/28/16 [History] Potassium Gluconate 500 mg PO DAILY 10/28/16 [History] Ferrous Sulfate 325 mg PO BIDWM #60 tablet 11/03/16 [Rx] Pantoprazole Sodium [Protonix] 40 mg PO BID #60 tablet. 11/03/16 [Rx] Sucralfate [Carafate] 1 gm PO QID #120 oral.susp 11/03/16 [Rx] Allergies/Adverse Reactions: Allergies No Known Allergies Allergy (Verified 02/02/15 14:04) Date of admission: 10/28/16 20:43 Primary care physician: PCP YASHIRA Consults: 10/28/16 22:41 Consult to Physician [CONS] Routine Consulting Provider: Rickey Brown Reason for Consult: Acute GI bleed. Black and bloody stool, hgb drop from 15.7 to 11.9 Call Completed: Yes 11/02/16 09:40 PT [Consult to Physical Therapy] [CONS] Routine Comment: Evaluate, develop and implement POC Reason for Consult: Deconditioning 11/02/16 09:41 OT [Consult to Occupational Therapy] [CONS] Routine Comment: Evaluate, develop and implement POC Reason for Consult: Deconditioning - Patient Status Disposition: Home, Self-Care Condition: Good Functional capacity at discharge: independent ambulation Overall status at discharge: patient is progressing back to baseline - Discharge Instructions [facility] With: [facility] [Primary Care Provider[facility] - Additional Instructions: Avoid all nonsteroidal anti-inflammatory drugs. Follow-up with PCP in one week. Return to the hospital if severe abdominal pain, black tarry stools, blood in the stool, blood in the vomitus, chest pain. - Diet and Activity Activity: increase activity as tolerated Diet: advance to your usual diet, other (Mechanical soft pureed with chopped meats diet, slowly advance) Hospital course: is a 76 year old male with past medical history significant for mild dementia and essential hypertension who presented to the hospital for evaluation of melena rectal bleed and generalized weakness. He was diagnosed with an acute GI bleed. He was admitted to the hospital. He had an upper endoscopy which revealed several gastric and duodenal ulcers with no active bleed tried some of the duodenal ulcers had adherent blood clot and visible vessel. Hemostasis was performed and the patient tolerated the procedure well. He was initially treated in the ICU with IV fluids, nothing by mouth and IV Protonix continuous infusion. He was started on clear liquid diet and this was advanced, was transitioned to IV Protonix twice daily. He tolerated this well. His blood pressure medications have been placed on hold and blood pressure which was initially well controlled, today is mildly elevated. He continued treatment with Bactrim as per outpatient regimen for urinary tract infection. Currently the patient has no urinary symptoms and he completed antibiotics. For hypertension he will restart on atenolol only. For bleeding duodenal ulcers. He will be prescribed Protonix twice a day and Carafate. He was advised to avoid all nonsteroidal anti-inflammatory drugs. He was found to have acute anemia. Initially he received 3 units of blood transfusion. He was started on ferrous sulfate and this will be prescribed upon discharge. He was advised to follow-up with primary care physician in one week. All the instructions were given in the presence of the patient's who verbalized understanding and agreement with the plan. - Time Spent with Patient Total time spent providing and/or coordinating discharge services: Greater than 30 minutes - Constitutional Vitals: Temp Pulse Resp BP Pulse Ox 98.2 F 68 17 147/82 94 11/03/16 10:46 11/03/16 10:46 11/03/16 10:46 11/03/16 10:46 11/03/16 10:46 General appearance: Present: A&O X 3, pleasant, no acute distress, answers questions appropriately - Neck Neck exam general surgery: Present: supple, trachea midline. Absent: lymphadenopathy - Respiratory Respiratory exam: Present: CTAB. Absent: accessory muscle use, rales, rhonchi, wheezes - Cardiovascular Cardiovascular exam: Present: RRR, +S1, +S2. Absent: diastolic murmur, gallop, rubs, systolic murmur - GI/Abdominal GI/Abdominal exam: Present: normal bowel sounds, soft, no peritoneal signs. Absent: distended, tenderness - VTE Documentation of Mechanical Device: Intermittent pneumatic compression device
== END 2016-11-03 15:16 | disposition home or self-care (01) | DRG 378 ==
LOC: EMEROO 19:14 → 3BNU 20:43 → SUATTDRO 20:43 → 3BNU 21:31 → ICNU 10-29 14:44 → 3NENU 11-01 16:43
PROVIDERS: ADMIT Internal Medicine Sleep Medicine; ATTEND Internal Medicine

== ENCOUNTER 2017-05-04 22:34 | Inpatient (IN) ==
--- NOTE | 2017-05-04 22:48 | Emergency Department Note ---
Disposition Clinical Impression: Abdominal pain Qualifiers: Abdominal location: generalized Qualified Code(s): R10.84 - Generalized abdominal pain Disposition: Admitted As Inpatient Condition: Good [facility]: [facility] Care Provider[facility] - Forms: ED Satisfaction Letter, Work/School Release Time of Disposition: 23:14 Abdominal Pain HPI - General Chief Complaint: ED Abdominal Pain Stated Complaint: Abd Pain Time Seen by Provider: 05/04/17 22:43 Source: patient Mode of arrival: EMS Nursing Notes Reviewed: Yes Vital Signs Reviewed: Yes - History of Present Illness HPI Narrative: is a 76-year-old man with a history of dementia, cholecystectomy, retention, hyperlipidemia who presents to the ED via EMS for 2 days history of abdominal pain. The patient was seen at the [facility] for abdominal pain earlier today which was evaluated with a CT. The CT demonstrated air located in the hepatic portus and gas in the biliary tree. Patient describes pain as 6 out of 10, constant, going on for about 2 days now. It is not associated with any nausea or vomiting, is unassociated with food. The patient does say that there is pain radiating towards his right flank. The patient is having no chest pain or shortness of breath. The patient reports no fevers or chills. Admittedly, the patient does have some baseline dementia, however he is alert and oriented to place and self. The patient presented with labs and imaging from the [place]. Pain Scale: 8 - Related Data Home Medications Medication Instructions Recorded Confirmed Allopurinol [Zyloprim 100 MG] 100 mg PO DAILY 10/28/16 10/28/16 Atenolol [Tenormin] 50 mg PO DAILY 10/28/16 10/28/16 Cholecalciferol (D-3) [Vitamin D] 1,000 unit PO DAILY 10/28/16 10/28/16 Donepezil HCl [Aricept] 10 mg PO DAILY 10/28/16 10/28/16 Ciprofloxacin HCl [Cipro] 500 mg PO BID 05/04/17 Cyclobenzaprine [Flexeril] 10 mg PO BID PRN 05/04/17 05/04/17 Galantamine [Razadyne] 8 mg PO BID 05/04/17 05/04/17 Lidocaine Patch [Lidoderm 5% patch] 1 each TP DAILY 05/04/17 05/04/17 Lisinopril [Zestril] 5 mg PO DAILY 05/04/17 05/04/17 Memantine HCl 10 mg PO BID 05/04/17 05/04/17 amLODIPine [Norvasc] 5 mg PO DAILY 05/04/17 05/04/17 Allergies Allergy/AdvReac Type Severity Reaction Status Date / Time NSAIDS (Non-Steroidal AdvReac See Verified 05/04/17 22:44 Anti-Inflamma Comments Constitutional: Denies: fever, chills Cardiovascular: Denies: chest pain, palpitations, dyspnea on exertion Respiratory: Denies: cough, dyspnea Gastrointestinal: Reports: abdominal pain, nausea. Denies: vomiting, diarrhea, constipation Genitourinary: Denies: urgency, dysuria, frequency Musculoskeletal: Reports: back pain Integumentary: Denies: rash, lesions Neurological: Denies: headache, weakness, numbness Abdominal Pain PMH - Past Medical History Medical history: Reports: dementia, hyperlipidemia, hypertension, thyroid disease, other Male Surgical History: Reports: appendectomy, cholecystectomy, herniorrhaphy Psychiatric history: Reports: no psych history - Social History Smoking status: Former smoker Alcohol use: Reports: none Drug use: Reports: none Physical Exam - General Limitations: no limitations General appearance: alert - Head Head exam: atraumatic, normocephalic - Eye Eye exam: Present: normal appearance. Absent: scleral icterus - ENT ENT exam: normal exam - Chest Chest inspection: Present: normal inspection - Respiratory Respiratory exam: Present: normal lung sounds bilaterally - Cardiovascular Cardiovascular exam: Present: regular rate, normal rhythm, normal heart sounds - Abdominal Exam Abdominal exam: Present: soft, Non-Tender. Absent: distention, guarding, rebound, rigidity - Extremities Exam Extremities exam: Present: normal inspection. Absent: pedal edema - Neurological Exam Neurological exam: Present: alert - Psychiatric Psychiatric exam: Present: normal affect, normal mood Course Vital Signs Temperature 98.9 F 05/04/17 22:38 Pulse Rate 70 05/04/17 22:38 Respiratory Rate 14 05/04/17 22:38 Blood Pressure 185/101 05/04/17 22:38 O2 Sat by Pulse Oximetry 95 05/04/17 22:38 Temperature 98.9 F 05/04/17 22:38 Pulse Rate 70 05/04/17 22:38 Respiratory Rate 14 12/28/17 22:38 Blood Pressure 185/101 05/04/17 22:38 O2 Sat by Pulse Oximetry 95 05/04/17 22:38 Oxygen Delivery Oxygen Delivery Room Air Abdominal Pain - MDM Narrative Medical decision making narrative: I reviewed the patient's labs and imaging reports. The patient initially had abdominal pain which was going on for several days but has migrated towards his right flank. Given the interpretation of the CT with gas in the biliary tree, there is concern about progression of this patient's illness. We spoke with Dr. Stevens about these findings and he is not highly concerned for acute cholangitis, nor does he think that this case is surgical. Labs are within normal limits for this patient, there is no evidence of hepatic damage at this time. We did add on a lactate. This patient should be admitted for serial labs and abdominal exams. Spoke with the hospitalist who asked for a GI consult , and Dr. Gutierrez agreed to see the patient. - Differential Diagnosis Differential Diagnosis: Likely: abdominal pain non-specific - Medical Records Medical records reviewed: Yes I reviewed the patient's medical records. - Lab Data Lab results reviewed: Yes I reviewed the patient's lab results. - Radiology Data Radiology results reviewed: Yes I reviewed the patient's radiology results.
[2017-05-05] MEDS ORDERED: *HR* OxyCODONE Immed Rel 5 MG TABLET PO PRN (00:57)
[2017-05-05] MEDS ORDERED: Acetaminophen 325 MG TABLET PO PRN (00:57)
[2017-05-05] MEDS ORDERED: Naloxone 0.4 MG/ML INJ IVP PRN (00:57)
--- NOTE | 2017-05-05 01:03 | Internal Med History&Physical ---
Date of Encounter: 05/05/17 Time of Encounter: 01:01 Assessment and Plan (1) Abdominal pain Current visit: Yes Status: Acute uncertain etiology; CT abdomen done in the ER showed gas in the biliary system but no other acute abnormality. LFTs normal. Surgery was consulted by ER physician, who recommended no surgical intervention, to monitor lactic acid, which is normal. Continue to monitor patient; he is asymptomatic at this time. clear liquid diet as tolerated. Qualifiers: Abdominal location: right upper quadrant Qualified Code(s): R10.11 - Right upper quadrant pain (2) Hyperlipidemia Current visit: Yes Status: Chronic continue statin; Qualifiers: Hyperlipidemia type: unspecified Qualified Code(s): E78.5 - Hyperlipidemia , unspecified (3) Dementia Current visit: Yes Status: Chronic continue Aricept and Namenda; fall precautions and supportive care; Qualifiers: Dementia type: Alzheimer's disease Alzheimer's disease onset: late-onset Dementia behavioral disturbance: without behavioral disturbance Qualified Code (s): G30.1 - Alzheimer's disease with late onset; F02.80 - Dementia in other diseases classified elsewhere without behavioral disturbance; F02.80 - Dementia in other diseases classified elsewhere without behavioral disturbance; F02.80 - Dementia in other diseases classified elsewhere without behavioral disturbance (4) Essential hypertension Current visit: Yes Status: Chronic BP noted to be elevated; will give first doses of home meds NOW; on Norvasc, beta camilla, ACEI; Internal Medicine - H&P: HPI Chief complaint: Abdominal pain Admitted From: Emergency Dept Plans for Post Hospital Care: Home History of present illness: is a 76 year old male with h/o- dementia, HTN was sent from [place] ER for evaluation of abdominal pain. Patient cannot provide any history due to dementia and claims he has issues with memory. No family at bedside, history obtained from ER records. Patient was brought in by his to the ER due to worsening abdominal pain, that started around 4-5 days ago. He has been having right upper and middle abdominal pain, radiating to his back, not associated with vomiting or diarrhea , not associated with food intake or position. No fever/chills, shortness of breath, chest pain. CT abdomen done in the ER showed gas in the biliary tree. Past Med Surg Social Fam HX - Past Medical History Medical history: dementia, hyperlipidemia, hypertension, thyroid disease, other Psychiatric history: no psych history - Past Surgical History Surgical History: cholecystectomy, herniorrhaphy, orthopedic, other (bilateral rotator cuff) - Social History Smoking Status: Former smoker Smokeless Tobacco Status: No Alcohol use: none Drug use: none Occupational status: retired Current living situation: Home, With Family Activity Level: Independent ambulation Recent Out of Country Travel Within the Last 8 Weeks: No Exposure or Possible Exposure to Illness During Travel: No - Family History Father Adopted: No Family Member Ethnicity: Non- Living Status: Hx Family Cardiac Disorders: Yes Hx Family Respiratory Disorders: Yes Hx Family Cancer: Yes Hx Family GI Disorders: No Hx Family Endocrine Disorder: No Hx Family Neuromuscular Disorders: No Hx Family Neurologic Disorders: No Hx Family HEENT Disorders: No Hx Family Autoimmune Disorders: No Mother Living Status: Hx Family Cardiac Disorders: Yes Internal Medicine - H&P: Meds Allopurinol [Zyloprim 100 MG] 100 mg PO DAILY 10/28/16 [History] Atenolol [Tenormin] 50 mg PO DAILY 10/28/16 [History] Cholecalciferol (D-3) [Vitamin D] 1,000 unit PO DAILY 10/28/16 [History] Donepezil HCl [Aricept] 10 mg PO DAILY 10/28/16 [History] Ciprofloxacin HCl [Cipro] 500 mg PO BID 05/04/17 [History] Cyclobenzaprine [Flexeril] 10 mg PO BID PRN 05/04/17 [History] Galantamine [Razadyne] 8 mg PO BID 05/04/17 [History] Lidocaine Patch [Lidoderm 5% patch] 1 each TP DAILY 05/04/17 [History] Lisinopril [Zestril] 5 mg PO DAILY 05/04/17 [History] Memantine HCl 10 mg PO BID 05/04/17 [History] amLODIPine [Norvasc] 5 mg PO DAILY 05/04/17 [History] 3 Allergy/AdvReac Type Severity Reaction Status Date / Time NSAIDS (Non-Steroidal AdvReac See Verified 05/04/17 22:44 Anti-Inflamma Comments All Systems PM: A 10-system review of systems was performed and is negative for pertinent findings except as documented above in the HPI. - Constitutional Constitutional: no chills, no fever(s), no night sweats - EENT Eyes: no change in vision, no discharge, no pain, no photophobia Ears: no ear discharge, no ear pain, no tinnitus Nose, mouth and throat: no dysphagia, no nasal discharge, no neck pain, no sore throat - Cardiovascular Cardiovascular ROS IM: no chest pain, no diaphoresis, no dyspnea, no lightheadedness, no palpitations, no syncope - Respiratory Respiratory: no cough, no dyspnea, no wheezing, no excessive phlegm production - Gastrointestinal Gastrointestinal: abdominal pain, no diarrhea, no hematemesis, no hematochezia, no melena, no nausea, no vomiting - Musculoskeletal Musculoskeletal ROS IM: no numbness, no tingling - Integumentary Integumentary IM: no rash, no unusual bruising - Neurological Neurological ROS: no confusion, no convulsions, no focal weakness, no numbness, no tingling, no tremor(s) - Hematologic/Lymphatic Hematologic/Lymphatic: no easy bruising - Constitutional Vitals: Temp Pulse Resp BP Pulse Ox 98.9 F 70 14 169/96 95 05/04/17 22:38 05/04/17 22:38 05/05/17 00:10 05/05/17 00:10 05/04/17 22:38 General appearance: Present: A&O X 2. Absent: answers questions appropriately - Respiratory Respiratory exam: Present: CTAB. Absent: accessory muscle use, rales, rhonchi, wheezes - Cardiovascular Cardiovascular exam: Present: RRR, +S1, +S2. Absent: diastolic murmur, gallop, rubs, systolic murmur - GI/Abdominal GI/Abdominal exam: Present: normal bowel sounds, soft (obese), no peritoneal signs. Absent: distended, tenderness - Extremities Exam Extremities exam: Present: full ROM, warm, radial pulses palpable and symmetrical. Absent: calf tenderness, cyanotic, pedal edema - Neurological Exam Neurological exam: Present: CN II-XII intact (memory issues), no focal deficits. Absent: pronater drift, facial droop, speech deficit - Skin Skin exam: Present: dry, intact Internal Med - H&P Results - Labs CBC & Chem 7: 05/05/17 01:11 05/05/17 01:11
[2017-05-05] MEDS: amLODIPine 5 MG TABLET PO SCH ×2 (01:22→09:12)
[2017-05-05] MEDS: 0.9 % Sodium Chloride 1,000 ML IVC SCH ×2 (01:22→14:51)
[2017-05-05 01:23] LABS: Basophils # 0.1 K/mcL (0.0-0.2); Basophils % 0.7 %; Eosinophils # 0.2 K/mcL (0.0-0.6); Eosinophils % 2.7 %; Hematocrit 45.6 % (37.5-50.1); Hemoglobin 15.4 g/dL (12.9-16.9); Immature Granulocytes % 0.3 % (0-4); Immature Platelets 2.1 % (1.1-6.1); Lymphocytes # 1.5 K/mcL (0.6-4.6); Lymphocytes % 21.5 %; Mean Corpuscular HGB Conc 33.8 g/dL (31.6-35.5); Mean Corpuscular Hemoglobin 29.8 pg (28.0-33.3); Mean Corpuscular Volume 88.2 fL (83.0-100.0); Mean Platelet Volume 9.8 fL (9.4-12.4); Monocytes # 0.6 K/mcL (0.0-1.3); Monocytes % 8.7 %; Neutrophils # 4.6 K/mcL (1.6-8.9); Platelet Count 143 K/mcL (140-400); Red Blood Count 5.17 M/mcL (4.19-5.50); Red Cell Distribution Width 14.5 % (11.5-14.5); Segmented Neutrophils % 66.1 %
[2017-05-05 01:40] LABS: Alanine Aminotransferase 15 Units/L (7-52); Albumin 4.2 g/dL (3.5-5.7); Albumin/Globulin Ratio 1.3 (1.1-2.2); Alkaline Phosphatase 52 Units/L (34-104); Aspartate Amino Transferase 18 Units/L (13-39); BUN/Creatinine Ratio 17 (6-26); Bilirubin,Total 1.1 mg/dL (0.3-1.0); Blood Urea Nitrogen 20 mg/dL (8-23); Calcium 9.3 mg/dL (8.6-10.3); Carbon Dioxide 27 mEq/L (23-29); Chloride 106 mEq/L (98-107); Globulin 3.3 g/dL (2.4-3.5); Glucose 91 mg/dL (70-105); Osmolality,Calculated 292 (280-300); Potassium 3.7 mEq/L (3.5-5.1); Sodium 140 mEq/L (136-145); Total Protein 7.5 g/dL (6.4-8.9); eGFR For African Americans > 60 (> 60); eGFR For Non-African Americans > 60 (> 60)
[2017-05-05] MEDS: *HR* Heparin 5,000 UNIT/ML VIAL SQ SCH ×2 (06:39→17:26)
--- NOTE | 2017-05-05 11:12 | Gastroenterology Consult Note ---
<Dharmesh Singh Shell - Last Filed: 05/05/17 11:09> Date of Encounter: 05/05/17 Time of Encounter: 09:45 - Assessment and plan (1) Abdominal pain Current Visit: Yes Status: Acute Assessment and plan: CT abdomen at [place] ED showed gas in biliary tree. Check MRCP. LFTs are normal, TB 1.1. Continue to monitor hepatic panel daily. Qualifiers: Abdominal location: right upper quadrant Qualified Code(s): R10.11 - Right upper quadrant pain (2) Dementia Current Visit: Yes Status: Chronic Qualifiers: Dementia type: Alzheimer's disease Alzheimer's disease onset: late-onset Dementia behavioral disturbance: without behavioral disturbance Qualified Code (s): G30.1 - Alzheimer's disease with late onset; F02.80 - Dementia in other diseases classified elsewhere without behavioral disturbance; F02.80 - Dementia in other diseases classified elsewhere without behavioral disturbance; F02.80 - Dementia in other diseases classified elsewhere without behavioral disturbance - Time Spent With Patient Total time spent is greater than 50% in coordination of care (as documented) at patient's floor/unit and/or counseling patient: GI History of Present Illness - Data of Consult Patient: new to practice Consult date: 05/05/17 Requesting Physician: Renetta Molina CNP - Consult Narrative Reason for consult: Abdominal pain, gas in biliary tree History of present illness: is a 76 year old male with PMHx of dementia, HTN, HTN, cholecystectomy 7-8 years ago who presented from the [place] ED for evaluation of abdominal pain. Pt was brought in by his to the ED with worsening abdominal pain that started 4-5 days ago. He has been having RUQ and epigastric pain. No fever, chills, chest pain, shortness of breath, vomiting, diarrhea. CT abdomen done in the ED showed gas in the biliary tree. The patient and his deny any previous ERCP. LFTs were normal and TB slightly elevated at 1.1. Surgery recommended no surgical intervention at this time. Procedures: No record NSAIDs: None Anticoagulation: None Past Med Surg Social Fam HX - Past Medical History Medical history: dementia, hyperlipidemia, hypertension, thyroid disease, other Psychiatric history: no psych history - Past Surgical History Surgical History: cholecystectomy, herniorrhaphy, orthopedic, other (bilateral rotator cuff) - Social History Smoking Status: Former smoker Smokeless Tobacco Status: No Alcohol use: none Drug use: none - Family History Father Adopted: No Family Member Ethnicity: Non- Living Status: Hx Family Cardiac Disorders: Yes Hx Family Respiratory Disorders: Yes Hx Family Cancer: Yes Hx Family GI Disorders: No Hx Family Endocrine Disorder: No Hx Family Neuromuscular Disorders: No Hx Family Neurologic Disorders: No Hx Family HEENT Disorders: No Hx Family Autoimmune Disorders: No Mother Living Status: Hx Family Cardiac Disorders: Yes - Gastrointestinal Gastrointestinal: Present: as per HPI - Constitutional Constitutional: as per HPI - EENT Eyes: as per HPI Ears: Present: as per HPI Nose, mouth and throat: Present: as per HPI - Cardiovascular Cardiovascular ROS: Present: as per HPI - Respiratory Respiratory IM: Present: as per HPI - Genitourinary Genitourinary: Absent: change in color, Urinary frequency - Neurological ROS Neurological GI: Present: as per HPI - Hematologic/Lymphatic Hematologic/Lymphatic pediatric: Present: as per HPI - Musculoskeletal Musculoskeletal ROS GI: Present: as per HPI - Integumentary Integumentary GI: Present: as per HPI - Psychiatric ROS Psychiatric GI: Present: as per HPI - Endocrine Endocrine IM: Present: as per HPI - Constitutional Vitals: Temp Pulse Resp BP Pulse Ox 97.8 F 57 16 130/69 94 05/05/17 10:55 05/05/17 10:55 05/05/17 10:55 05/05/17 10:55 05/05/17 10:55 General appearance: Present: cooperative, A&O X 3, no acute distress, answers questions appropriately - Head Head exam: Present: atraumatic, normocephalic - Eye Eye exam: Present: normal appearance, sclera anicteric - ENT ENT exam: Present: mucous membranes dry - Neck Neck exam general surgery: Present: normal inspection, trachea midline - Respiratory Respiratory exam: Present: CTAB. Absent: rales, rhonchi - Cardiovascular Cardiovascular exam: Present: RRR, +S1, +S2 - GI/Abdominal GI/Abdominal exam: Present: normal bowel sounds, soft, no peritoneal signs - Rectal Rectal exam: Present: deferred - Extremities Exam Extremities exam: Present: warm - Neurological Exam Neurological exam: Present: no focal deficits - Psychiatric Psychiatric exam: Present: normal affect, normal mood - Skin Skin exam: Present: dry, intact, normal color, warm Results - Labs CBC & Chem 7: 05/05/17 01:11 05/05/17 01:11 Labs: Last Result Calcium 9.3 mg/dL (8.6-10.3) 05/05/17 01:11 Troponin I < 0.03 ng/mL (< 0.04) 05/05/17 06:31 Entire Visit Hgb 15.4 g/dL (12.9-16.9) 05/05/17 01:11 Hct 45.6 % (37.5-50.1) 05/05/17 01:11 Total Bilirubin 1.1 mg/dL (0.3-1.0) H 05/05/17 01:11 AST 18 Units/L (13-39) 05/05/17 01:11 ALT 15 Units/L (7-52) 05/05/17 01:11 Consult Discharge Plan - Plan [facility]errals: [facility] [[facility] Care Provider[facility] - <Henrik Gutierrez - Last Filed: 05/05/17 12:46> Date of Encounter: 05/05/17 Time of Encounter: 12:00 - Time Spent With Patient Total time spent is greater than 50% in coordination of care (as documented) at patient's floor/unit and/or counseling patient: GI History of Present Illness - Data of Consult Requesting Physician: Renetta Molina CNP - Consult Narrative History of present illness: is a 76 year old male - Constitutional Vitals: Temp Pulse Resp BP Pulse Ox 97.8 F 57 16 130/69 94 05/05/17 10:55 05/05/17 10:55 05/05/17 10:55 05/05/17 10:55 05/05/17 10:55 Results - Labs CBC & Chem 7: 05/05/17 01:11 05/05/17 01:11 Labs: Last Result Calcium 9.3 mg/dL (8.6-10.3) 05/05/17 01:11 Troponin I < 0.03 ng/mL (< 0.04) 05/05/17 06:31 Entire Visit Hgb 15.4 g/dL (12.9-16.9) 05/05/17 01:11 Hct 45.6 % (37.5-50.1) 05/05/17 01:11 Total Bilirubin 1.1 mg/dL (0.3-1.0) H 05/05/17 01:11 AST 18 Units/L (13-39) 05/05/17 01:11 ALT 15 Units/L (7-52) 05/05/17 01:11 - Attending Attestation I examined this patient and my medical decision-making was reviewed with the Resident Physician. I agree with the documented findings, disposition and treatment plan as described except to the extent set forth below. Patient 76-year-old male with a history of CBD stone and gallstone and had a ERCP done about 8-10 years ago in [place] and then had his gallbladder removed at [facility]. Patient admitted this time because of abdominal pain , pain more in the bilateral flank area denies any urinary symptoms. CT showed some gas in the biliary tree which is due to his previous sphincterotomy LFTs are normal. No acute indication for any biliary intervention
[2017-05-06] MEDS: *HR* Heparin 5,000 UNIT/ML VIAL SQ SCH (06:12)
[2017-05-06] MEDS: amLODIPine 5 MG TABLET PO SCH (07:38)
[2017-05-06 11:21] VITALS: BP 128/74
--- NOTE | 2017-05-06 16:14 | Discharge Summary ---
Date of Encounter: 05/06/17 Time of Encounter: 11:10 - Discharge Diagnosis (1) Abdominal pain Priority: Primary Status: Acute Comments: Abdominal pain is now resolved - unclear etiology MRCP - possible small amount of pneumobilia within the left hepatic lobe, mild prominence of the pancreatic duct near the pancreatic head WBC - 7.0 T.bili - 1.1 Troponin < 0.03 GI consult - discussed with Dr. Gutierrez - advised to discharge patient and follow up as outpatient, small amount of pneumobilia in the left hepatic lobe possibly due to previous ERCP done several years ago Patient and family explained about condition and plan of care. Advised to return if symptoms worsen. Follow up with PCP and GI as outpatient. Qualifiers: Abdominal location: unspecified location Qualified Code(s): R10.9 - Unspecified abdominal pain (2) Essential hypertension Priority: Primary Status: Chronic Comments: Essential hypertension, controlled, monitor Continue home dose of Norvasc, Atenolol, Zestril (3) Dementia Priority: Primary Status: Chronic Comments: Moderate to severe dementia without behavioral disturbances Continue home dose of Galantamine, Aricept, Namenda Qualifiers: Dementia type: Alzheimer's disease Alzheimer's disease onset: late-onset Dementia behavioral disturbance: without behavioral disturbance Qualified Code (s): G30.1 - Alzheimer's disease with late onset; F02.80 - Dementia in other diseases classified elsewhere without behavioral disturbance; F02.80 - Dementia in other diseases classified elsewhere without behavioral disturbance; F02.80 - Dementia in other diseases classified elsewhere without behavioral disturbance - Discharge Medications Prescriptions: OxyCODONE Immed Rel [Roxicodone 5 MG] 5 mg PO Q6HR PRN #7 tablet PRN Reason: Moderate Pain (4-6) Omeprazole [PriLOSEC] 20 mg PO BIDAC #30 capsule.dr Home Medications: Allopurinol [Zyloprim 100 MG] 100 mg PO DAILY 10/28/16 [History] Atenolol [Tenormin] 50 mg PO DAILY 10/28/16 [History] Cholecalciferol (D-3) [Vitamin D] 1,000 unit PO DAILY 10/28/16 [History] Donepezil HCl [Aricept] 10 mg PO DAILY 10/28/16 [History] Ciprofloxacin HCl [Cipro] 500 mg PO BID 05/04/17 [History] Cyclobenzaprine [Flexeril] 10 mg PO BID PRN 05/04/17 [History] Galantamine [Razadyne] 8 mg PO BID 05/04/17 [History] Lidocaine Patch [Lidoderm 5% patch] 1 each TP DAILY 05/04/17 [History] Lisinopril [Zestril] 5 mg PO DAILY 05/04/17 [History] Memantine HCl 10 mg PO BID 05/04/17 [History] amLODIPine [Norvasc] 5 mg PO DAILY 05/04/17 [History] Omeprazole [PriLOSEC] 20 mg PO BIDAC #30 capsule. 05/06/17 [Rx] OxyCODONE Immed Rel [Roxicodone 5 MG] 5 mg PO Q6HR PRN #7 tablet 05/06/17 [Rx] Allergies/Adverse Reactions: 3 Allergy/AdvReac Type Severity Reaction Status Date / Time NSAIDS (Non-Steroidal AdvReac See Verified 05/04/17 22:44 Anti-Inflamma Comments Procedures/tests Complete & Pending: Procedures Performed prior 72 hours Category Date Time Status MRCP [MR abdomen wo con] [MR] Stat MRI 05/05/17 11:17 Completed Date of admission: 05/04/17 23:24 Primary care physician: PCP YASHIRA Anticipated date of discharge: 05/06/17 - Patient Status Disposition: Home, Self-Care Condition: Good Functional capacity at discharge: independent ambulation Overall status at discharge: patient is back to baseline - Discharge Instructions Instructions: Acute Abdominal Pain (DC) [facility]: [facility] [Primary Care Provider] - (Please call PCP to make hospital follow up within 5-7 days.) Henrik Gutierrez MD [Partnered Physician] - (Web request sent. Office will call with follow up appointment. ) - Diet and Activity Activity: increase activity as tolerated, resume usual activities as tolerated Diet: advance to your usual diet, low fat, low cholesterol Hospital course: is a 76 year old male with past medical history of hyperlipidemia, hypertension, thyroid disease and dementia. Patient presented to the ED with complaints of abdominal pain. Initial CT showed possible gas in the biliary system but no other acute abnormality. LFTs were normal. T bili was slightly elevated. General surgery was consulted by the ER, and recommended no surgical intervention. Advised to monitor lactic acid. GI was consulted. Advised MRCP. This shows possible small amount of pneumobilia within the left hepatic lobe. Advised consider follow-up ERCP. I have discussed with Dr. Gutierrez, who advised outpatient follow-up. Stated the patient could be discharged, the small amount of pneumobilia is likely due to the patient's previous ERCP done several years ago. Patient states that his abdominal pain is now resolved. He is now tolerating oral diet well. Denies vomiting. Denies chest pain or shortness of breath. No other acute events or complaints or consultation during his stay in the hospital. Patient is ambulating well and tolerating oral diet well. Patient and family have been explained about his condition and plan of care in detail. They understood and agreed. No unanswered questions. Advised to follow up with PCP and GI as outpatient. Advised to return if symptoms worsen. - Time Spent with Patient Total time spent providing and/or coordinating discharge services: Less than 30 minutes - Constitutional Vitals: Temp Pulse Resp BP Pulse Ox 97.7 F 84 16 128/74 95 05/06/17 11:19 05/06/17 11:19 05/06/17 11:19 05/06/17 11:19 05/06/17 11:19 General appearance: Present: cooperative, A&O X 2, pleasant, no acute distress, answers questions appropriately - Head Head exam: Present: atraumatic - Eye Eye exam: Present: EOMI - ENT ENT exam: Present: mucous membranes moist - Respiratory Respiratory exam: Present: CTAB. Absent: accessory muscle use, chest wall tenderness, rales, respiratory distress, rhonchi, wheezes, tachypnea - Cardiovascular Cardiovascular exam: Present: RRR, +S1, +S2 - GI/Abdominal GI/Abdominal exam: Present: soft, no peritoneal signs. Absent: distended, firm , guarding, tenderness - Extremities Exam Extremities exam: Present: radial pulses palpable and symmetrical. Absent: calf tenderness, cyanotic, pedal edema - Neurological Exam Neurological exam: Present: alert, no focal deficits. Absent: facial droop, speech deficit Additional comments: Awake and alert and oriented 2.
== END 2017-05-06 16:49 | disposition home or self-care (01) | DRG 392 ==
LOC: EMEROO 22:34 → 3BNU 23:24
PROVIDERS: ADMIT Internal Medicine Hematology & Oncology; ATTEND Registered Nurse